=== PATIENT | female | born 1940 | race Caucasian/White ===

== ENCOUNTER 2021-10-31 16:44 | Outpatient (CLI) | payer SELFPAY | END 2021-10-31 16:45 | disposition home or self-care (01) | LOC: AMB 11-21 11:50 | PROVIDERS: Visit Provider Emergency Medicine | DX: S89.91XA Unspecified injury of right lower leg, initial encounter (principal); W18.30XA Fall on same level, unspecified, initial encounter; Y92.009 Unspecified place in unspecified non-institutional (private) residence as the place of occurrence of the external cause | CPT/HCPCS: A0998 ==

== ENCOUNTER 2023-07-10 14:43 | Outpatient (CLI) | payer MEDICARE, BC, SELFPAY ==
--- OUTSIDE RECORDS SUMMARY | 2023-07-17 12:21 | XMS_ITS | Encounter Summary ---
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 Name Role Phone Alvin Borrego NP Primary Care Provider [phone] Encounter Details Date Type Department Care Team (Late st Contact Info) Description 04/24/2023 1:00 PM [facility] Office Visit [facility] [address] [place], [place] [address] Ruel Sanchez MD [address] [place], [place] [id number] Chronic kidney disease, stage 4 (severe) (CMS-HCC) (Primary Dx); Essential (primary) hypertension; Idiopathic gout, not otherwise specified; Hypercalcemia; History of parathyroidectomy; History of acute renal failure; Albuminuria, not otherwise specified; Vitamin D deficiency, not otherwise specified Social History Tobacco Use Types Packs/Day Years Used Date Smoking Tobacco: Former Cigarettes Q uit: 1982 Smokeless Tobacco: Never Alcohol Use Standard Drinks/Week Comments Not Currently 0 (1 standard drink = 0.6 oz pur e alcohol) Sex and Gender Information Value Date Recorded Sex Assigned at Not on file Gender Identity Not on file Sexual Orientation Not on file documented as of this encounter Progress Notes * Ruel Sanchez MD - 04/24/2023 1:00 PM CST Nephrology Follow-up [facility] Primary physician: Alvin Borrego NP 04/24/23 Visit completed with the use of audio technology Total time including chart preparation, patient interview and documentation in excess of 30 minutes Identification: Follow-up CKD stage 3b/4 Impression: 1. CKD stage Stage IIIb -baseline creatinine 1.5 mg/dl -GFR 40 to 50 ml/min range -12/28/20: 1.66 mg/dl -12/20/21: 1.37 mg/dl -04/29/22: 1.48 mg/dl -probable progressive chronic kidney disease 2. ARF -associated with hypercalcemia 02/2019 -peak creatinine > 3 mg/dl -resolved -multiple previous ARF episodes 3. Hypertension -controlled by review 4. Primary hyperparathyroidism -parathyroidectomy 01/2019 -multiple hospitalizations regarding Ca fluctuations -follows with Dr. Bee Endocrinology -12/28/20: Ca 8.8 mg/dl -08/10/21: Ca 7.3 mg/dl -12/20/21: Ca 8.6 mg/dl -04/23/22: Ca 7.8 mg/dl 5. Chronic lymphedema 6. Diabetes 7. Hyperuricemia with gout 8. Depression 9. Osteopenia -Prolia initiated 01/2022 Seen by primary care dated 12/21/22 By endocrinology dated 01/10/23 Labs performed 04/23/22 reviewed in detail with the patient. Creatinine 1.67 mg/dL Creatinine slightly above baseline, in conjunction with modestly elevated sodium suggest perhaps mild volume depletion Plan: 1. Encouraged to maintain hydration 2. Follow-up labs July 3. Continue current meds Patient to titrate her MiraLAX based on her frequency of bowel movements History of Present Illness: Patient follow-up in the setting of CKD and stage 3b/4. Patient last evaluated here in October. As noted she has been following up with her medical care. Major issue is her bowels by review. Titrating her MiraLAX. Mood stable. Edema persists. Denies headache chest pain or shortness of breath. Review of her blood pressures per outpatient notes demonstrate adequate control. I did review her medications in detail with her. Medical Problem List: Patient Active Problem List Diagnosis Chronic kidney disease, stage 4 (severe) ([facility]) Essential (primary) hypertension Vitamin D deficiency Gout Hypercalcemia History of parathyroidectomy History of acute renal failure Albuminuria Disorder of kidney due to diabetes mellitus ([facility]) Current Medications: Current Outpatient Medications Medication Sig Dispense Refill acetaminophen (TYLENOL 8 HOUR) 650 MG 8 hr tablet Take 650 mg by mouth every 8 (eight) hours if needed 0 aspirin (ST SALTY) 81 MG EC tablet Take 1 tablet by mouth daily atorvastatin (LIPITOR) 80 MG tablet 1 tab daily 0 bumetanide (BUMEX) 1 MG tablet TAKE 1 TABLET BY MOUTH 1 TIME EACH DAY. 90 tablet 3 cholecalciferol (VITAMIN D-3) 25 MCG (1000 UT) tablet Take 2,000 Units by mouth 1 (one) time each day 3 days per week - Saturday, Saturday and Saturday. Continuous Blood Gluc Sensor (Gema TouchStyle Haile 2 Sensor) [facility] [place] APPLY EVERY 14 DAYS. TO BE USED TO READ BLOOD SUGARS PER CLAMMER'S DIRECTIONS. Denosumab 60 MG/ML solution prefilled syringe Inject 60 mg under the skin every 6 (six) months diclofenac (VOLTAREN) 1 % topical gel Apply 1 application topically 2 (two) times a day Ferrous Sulfate (IRON) 325 (65 Fe) MG tablet Take 1 tablet by mouth 2 (two) times a week 0 FLUoxetine (PROzac) 40 MG capsule Take 40 mg by mouth 1 (one) time each day gabapentin (NEURONTIN) 300 MG capsule Take 300 mg by mouth in the morning and 300 mg in the evening. hydrocortisone (ANUSOL-HC) 2.5 % rectal cream Apply rectally as needed 0 insulin aspart (NovoLOG FLEXPEN) 100 UNIT/ML injection 5 units with small meals, 10 units with large meals. Use a 2/50 >150 sliding scale. Up to 40 units daily insulin glargine (Lantus SoloStar) 100 UNIT/ML injection Inject 8 Units under the skin in the morning. levETIRAcetam (KEPPRA XR) 750 mg tablet sustained-release 24 hour 24 Hour tablet Take 750 mg by mouth every night loratadine (CLARITIN) 10 MG tablet Take 0.5 tablets by mouth 1 (one) time each day 0 Multiple Vitamins-Minerals (PRESERVISION AREDS 2) capsule Take 1 tablet by mouth twice a day 0 omega-3 acid ethyl esters (LOVAZA) 1 g capsule Take 1 g by mouth 2 (two) times a day Oyster Shell Calcium 500 MG tablet TAKE 2 TABLETS (1,000 MG) BY MOUTH ONCE DAILY WITH A MEAL. Ozempic, 0.25 or 0.5 MG/DOSE, 2 MG/3ML solution pen-injector INJECT 0.25 MG UNDER THE SKIN ONCE WEEKLY polyethylene glycol (MIRALAX) powder prn 0 senna-docusate sodium (SENOKOT-S) 8.6-50 MG tablet Take 1 tablet by mouth 1 (one) time each day if needed 0 No current facility-administered medications for this visit. Allergies: Allergies Allergen Reactions Amoxicillin Nausea Only nausea Social/Family History: No recent changes per patient She is currently at home. She lives alone but her daughter is visiting at this time. Review of Systems: Review of Systems Constitutional: Positive for fatigue. Negative for activity change, appetite change, fever and unexpected weight change. HENT: Negative. Eyes: Negative. Respiratory: Negative. Cardiovascular: Positive for leg swelling. Gastrointestinal: Positive for diarrhea. Genitourinary: Negative. Neurological: Negative. Psychiatric/Behavioral: Positive for dysphoric mood and sleep disturbance. Examination: Physical Exam Constitutional: Appearance: She is well-developed and well-nourished. Eyes: Extraocular Movements: EOM normal. Cardiovascular: Rate and Rhythm: Normal rate and regular rhythm. Pulmonary: Effort: Pulmonary effort is normal. Musculoskeletal: General: Edema present. Neurological: Mental Status: She is alert and oriented to person, place, and time. Psychiatric: Mood and Affect: Mood and affect normal. Behavior: Behavior normal. Data: Labs dated 04/23/23 reviewed with patient in detail Creatinine 1.67 mg/dl Na 145 mmol/l Ca 7.8 mg/dl No visits with results within 22 Day(s) from this visit. Latest known visit with results is: Orders Only on 10/11/2022 Component Date Value Ref Range Status Glucose, Serum/Plasma 10/11/2022 100 (H) 65 - 99 mg/dL Final Urea nitrogen, Serum/Plasma (BUN) 10/11/2022 30 (H) 7 - 25 mg/dL Final Creatinine, Serum/Plasma 10/11/2022 1.43 (H) 0.60 - 0.95 mg/dL Final Estimated Glomerular Filtration Ra* 10/11/2022 37 (L) > OR = 60 mL/min/1.73m2 Final Urea nitrogen/Creatinine, Serum/Pl* 10/11/2022 21 6 - 22 (calc) Final Sodium, Serum/Plasma 10/11/2022 143 135 - 146 mmol/L Final Potassium, Serum/Plasma 10/11/2022 4.1 3.5 - 5.3 mmol/L Final Chloride, Serum/Plasma 10/11/2022 103 98 - 110 mmol/L Final Carbon dioxide CO2), total, Serum/* 10/11/2022 29 20 - 32 mmol/L Final Calcium, Serum/Plasma 10/11/2022 9.2 8.6 - 10.4 mg/dL Final Phosphate, Serum/Plasma 10/11/2022 3.7 2.1 - 4.3 mg/dL Final Albumin, Serum/Plasma 10/11/2022 4.2 3.6 - 5.1 g/dL Final PTH, Intact, Serum/Plasma 10/11/2022 26 16 - 77 pg/mL Final Calcidiol, Serum/Plasma 10/11/2022 53 30 - 100 ng/mL Final Lab Results Component Value Date CREATININE 1.43 (H) 10/11/2022 CREATININE 1.48 (H) 04/20/2021 CREATININE 1.48 (H) 06/13/2020 CREATININE 2.04 (H) 01/11/2020 CREATININE 1.48 (H) 06/30/2018 CREATININE 1.34 (H) 12/12/2017 CREATININE 1.23 (H) 08/07/2017 CREATININE 1.41 (H) 12/26/2016 CREATININE 1.61 (H) 10/08/2016 CREATININE 1.98 (H) 10/11/2015 CREATININE 2.75 (H) 02/09/2014 Mis Sanchez [facility] [phone] [facility] documented in this encounter Plan of Treatment Not on file documented as of this encounter Visit Diagnoses Diagnosis Chronic kidney disease, stage 4 (severe) ([facility])- Primary Essential (primary) hypertension Idiopathic gout, not otherwise specified Hypercalcemia History of parathyroidectomy History of acute renal failure Albuminuria, not otherwise specified Vitamin D deficiency, not otherwise specified documented in this encounter Care Teams [employer] Operator Relationship Specialty Start Date End Date Alvin Borrego NP [address] [place], [place] [id number] PCP - General 04/15/23 05/09/23 documented as of this encounter
--- OUTSIDE RECORDS SUMMARY | 2023-07-17 12:21 | XMS_ITS | Continuity of Care Document ---
Author Name Unknown Organization [facility] bhavna Address [address] [place] [address] Phone Care Team Providers Care Gear Cutter Name Role Phone Will MD MUSA, Heri Unavailable Unavailabl e Allergies, Adverse Reactions, Alerts Substance Reaction Status Criticality amoxicillin Nausea Active No Information Medications Medication Instructions Dosage Effective Dates (start - stop) Status Comments bumetanide 1 mg tablet take 1 tablet by oral route every day 1 MG - Active allopurinol 100 mg tablet take 1 tablet by oral route every day 100 MG - Active gabapentin 300 mg capsule take 1 capsule by ORAL route 3 times every day 300 MG - Active Lipitor 80 mg tablet take 1 tablet by oral route every day 80 MG - Active Vitamin D3 25 mcg (1,000 unit) tablet - Active diclofenac 1 % topical gel apply 2 gram by topical route 4 times every day to the affected area(s) 2.00 gram - Active docusate sodium 100 mg capsule take 1 capsule by oral route 3 times every day at bedtime as needed 100 MG - Active levetiracetam 500 mg/5 mL intravenous solution infuse (500MG) by intravenous route 2 times every day over 500 MG - Active Lovaza 1 gram capsule take 2 capsule by oral route 2 times every day 2 G - Active gabapentin 300 mg capsule take 1 capsule by ORAL route 3 times every day 300 MG - Active Sloughhouse 5 mg-325 mg tablet take 1 tablet by oral route every 6 hours as needed for pain - Active Procedures Procedure Date OFFICE/OUTPATIENT VISIT, NEW Advance Directives Directive Yes / No Effective Date File Name No Information Encounters Encounter Description Practice Location Reason(s) For Visit Diagnoses Date Provider Providers Copied on Encounter [facility], [address] [place], [id number] , [place] tel:[phone] [facility] Andie No Information 2 Chandrakant Liriano. [address] [place], [id number] , [place]. tel:[phone] OFFICE/OUTPA TIENT VISIT, NEW [facility], [address] [place], [id number] , [place] tel:[phone] [facility] [place] Low back pain (chief complaint) Chronic pain syndromePostlaminec meka syndrome, not elsewhere classifiedEncounter for screening for other disorderLumbago with sciatica, unspecified sideRadiculopathy, lumbosacral region 0 Jolynn Rondon. [address], [place], [id number] , [place]. tel:[phone] Referring Provider: Tino Abdi, [address] [address] [place], [address]. tel:[phone] Family History Family Member Type Diagnosis Age At Onset No Information Payers Payer name Insurance type Covered alliance party ID Authoriza tion(s) Medicare MB [id number] [facility] [id number] Social History Type Description Quantity Date Captured Comments Sex Female Smoking Status No Information Chief Complaint And Reason For Visit No Information Reason For Referral Reason For Referral No Information History Of Present Illness Encounter Date Complaint History Of Prese nt Illness Low back pain Severity level i s 8. Location of pain is lower back, gluteal area, legs and knee.The patient describes the pain as an ache, burning and sharp. Symptoms are aggravated by ascending stairs, descending stairs, lifting, running, standing and walking. Symptoms are relieved by ice and rest. Low back pain (comments) Vianey is a 79 y/o female here for chronic widespread pain most bothersome in her BL buttock, R outer thigh and R knee. She has experienced sciatica pain intermittently over the last three years. Pain started to get more severe in November 2019. She then started experiencing intense burning on the right outer thigh to knee. Pain is especially aggravated while getting out of bed. She has a history of L3-L5 fusion in 2017 and L3 and L4 laminectomies in 2013 which was completed at [place]. She is now established with Dr. Torrez at [facility] for further workup.Vianey has recently trialled physical therapy at [facility] in [place] with no benefit. She also had a sacral and lumbar MRI done at [facility]. She will be having a repeat lumbar MRI next week. She is currently managed on gabapentin 300mg three times and Sloughhouse 5mg-325mg as needed which is prescribed by her PCP, Dr. Fraga.She is interested in any pain management options and adjunctive therapies that will manage daily flares. Functional Status Date Functional Assessmen t No Information Instructions Date Instruction Additional Infor mation No Information Assessments Type Assessment Date No Information Patient Care Teams Name Effective Dates (start - stop) Status Members No Information
--- OUTSIDE RECORDS SUMMARY | 2023-07-17 12:21 | XMS_ITS | Referral Summary ---
Author Name Unknown Organization [facility] Address [address] [place] [id number] Care Team Providers Care Furnace Door Tender Name Role Phone Sukh Borrego MD Primary Care Provider Leanne Shrestha PA-C Unavailable Encounters Date Type Department Care Team Description 07/10/2023 Travel 07/10/2023 3:21 PM CDT - 07/10/2023 6:48 PM CDT Emergency [facility] Emergency Dept [address] [place] [address] Florina Soler MD Abdominal pain, unspecified abdominal location; Constipation, unspecified constipation type; Thrombocytopenia (H24) Discharge Disposition: Home or Self Care 06/18/2023 Travel 06/18/2023 3:50 PM CDT - 06/18/2023 11:59 PM CDT Hospital Encounter [facility] [address] [address] René Doss MD Altered bowel habits Discharge Disposition: Home or Self Care 06/11/2023 Travel from Last 3 Months Allergies Active Allergy Reactions Criticality Noted Date Comments Amoxicillin Nausea 07/02/2002 nausea Medications Medication Sig Dispensed Refills Start Date End Date Status ferrous sulfate (IRON) 325 (65 FE) MG tablet Take 325 mg by mouth twice a week On Mondays and Active insulin aspart (NOVOLOG FLEXPEN) 100 UNIT/ML injection Inject Subcutaneous 3 times daily (with meals) Inject as per sliding scale: <70 call CUSHION MAT MAKER and use hypoglycemic protocol if 200 - 249 = 2 unit 250 - 299 = 4 units 300 - 349 = 6 units 350 - 399 = 8 units 400 - 449 = 10 units 450+ = 12 units call MD Active famotidine (PEPCID) 20 MG tabletIndications:Gastr oesophageal reflux disease without esophagitis Take 1 tablet (20 mg) by mouth daily 30 tablet 1 03/29/20 19 Active gabapentin (NEURONTIN) 300 MG capsule Take 300 mg by mouth 2 times daily Active cholecalciferol 25 MCG (1000 UT) TABS Take 1 tablet by mouth daily Active calcitRIOL (ROCALTROL) 0.25 MCG capsuleIndications:Hype rcalcemia,Hyperparathyr oidism (H24) Take 1 capsule (0.25 mcg) by mouth daily 30 capsule 05/02/19 Active acetaminophen (TYLENOL) 500 MG tablet Take 1,000 mg by mouth every 8 hours as needed for mild pain Active allopurinol (ZYLOPRIM) 100 MG tablet Take 200 mg by mouth daily Active bumetanide (BUMEX) 1 MG tablet Take 1 mg by mouth 2 times daily Active calcium carbonate (OS-JAYDEN) 500 MG tablet Take 1 tablet by mouth 2 times daily Active atorvastatin (LIPITOR) 80 MG tabletIndications:Pure hypercholesterolemia Take 0.5 tablets (40 mg) by mouth At Bedtime 06/21/19 Active insulin glargine (BASAGLAR KWIKPEN) 100 UNIT/ML penIndications:Type 2 diabetes mellitus with diabetic neuropathy, with long-term current use of insulin (H) Inject 10 Units Subcutaneous daily 06/21/19 Active Additional Information Patient taking differently: 8 UnitsSubcutaneous DAILY, Reported on 06/11/2023 insulin aspart (NOVOLOG FLEXPEN) 100 UNIT/ML penIndications:Type 2 diabetes mellitus with diabetic neuropathy, with long-term current use of insulin (H) Inject 1 unit per 20 grams of carbohydrates three times daily with meals. 06/21/19 Active levETIRAcetam (KEPPRA) 750 MG tabletIndications:Statu s epilepticus (H) Take 1 tablet (750 mg) by mouth every 12 hours 06/21/19 Active FLUoxetine (PROZAC) 40 MG capsule Take 40 mg by mouth daily 03/19/20 21 2023 Disconti nued(Pat ient Discharg e) sertraline (ZOLOFT) 100 MG tablet Take 2 tablets by mouth every morning 12/22/19 22 2023 Disconti nued(Pat ient Discharg e) Active Problems Problem Noted Date Diagnosed Date Recurrent major depressive disorder, in tom n (H24) 08/29/2021 Status epilepticus 06/15/2019 CKD (chronic kidney disease) stage 4, GFR 15-29 ml/min 04/16/2019 Hypercalcemia 02/18/2019 Hypocalcemia 01/25/2019 Hyperparathyroidism (H24) 01/16/2019 Cellulitis 01/21/2018 Sepsis 04/30/2017 Gout 10/07/2009 Dyslipidemia 10/05/2009 Diabetes mellitus, type 2 10/12/2002 Overview: Problem list name updated by automated process. Provider to review Pure hypercholesterolemia 10/12/2002 Essential hypertension, benign 10/12/2002 Symptomatic menopausal or female climacteric sta peter 10/12/2002 Osteoarthritis 10/12/2002 Overview: Problem list name updated by automated process. 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 Provider to review Resolved Problems Problem Noted Date Diagnosed Date Resolved Date Thumb pain 08/17/2010 09/12/2010 Generalized osteoarthritis of hand 08/17/2010 09/12/2010 Immunizations Name Administration Dates Next Due DTaP, Unspecified 03/25/2015 Flu 65+ Years 12/29/2018,12/23/2017,12/20/2016 Influenza (H1N1) 04/22/2009 Influenza (High Dose) 3 dansiha nt vaccine 01/06/2016,01/11/2015,01/08/2014 Influenza (IIV3) PF 02/03/2013, 2,02/01/2011,2009,12/29/2008,01/21/2008,01/28/2007,1 04/15/2005,01/23/2005,01/12/2004, 003,02/20/2002 Influenza, seasonal, injectable, PF 02/01/2011 Pneumo Conj 13-V (2010&after) 03/25/2015 Pneumococcal 23 valent 02/21/2011,04/09/1999 Td (Adult), Adsorbed 10/10/2006,10/06/1996 Zoster recombinant adjuvante d (SHINGRIX) 09/11/2018,01/02/2018 Social History Tobacco Use Types Packs/Day Years Used Date Smoking Tobacco: Former Cigarettes Smokeless Tobacco: Never Tobacco Cessation:Counseling Given: Not Answered Alcohol Use Standard Drinks/Week Comments Yes 0 (1 standard drink = 0.6 oz pur e alcohol) Adolescent Education Answer Date Record ed Getting School Help Needed Not on file 01/18 Sex and Gender Information Value Date Recorded Sex Assigned at Not on file Gender Identity Not on file Sexual Orientation Not on file Last Filed Vital Signs Vital Sign Reading Time Taken Comments Blood Pressure 117/53 07/10/2023 6:15 PM CDT Pulse 85 07/10/2023 6:15 PM CDT Temperature 36.6 ??C (97.9 ??F) 07/10/2023 3:33 PM CD T Respiratory Rate 18 07/10/2023 3:33 PM CDT Oxygen Saturation 98% 07/10/2023 6:20 PM CDT Inhaled Oxygen Concentration - - Weight 85.5 kg (188 lb 7.9 oz) 06/18/2019 12:00 AM CDT Height 160 cm (5' 3) 04/29/2019 9:37 PM SENIOR NATIONAL ACCOUNT MANAGER Body Mass Index 33.39 04/29/2019 9:37 PM SENIOR NATIONAL ACCOUNT MANAGER Plan of Treatment Not on file Procedures Procedure Name Priority Date/Time Associated Diagnosis Comments CT ABDOMEN PELVIS W/O CONTRAST STAT 07/10/2023 4:19 PM CDT CBC WITH PLATELETS & DIFFERENTIAL STAT 07/10/2023 3:49 PM CDT EXTRA GREEN TOP (LITHIUM HEPARIN) ON ICE STAT 07/10/2023 3:49 PM CDT CBC WITH PLATELETS AND DIFFERENTIAL STAT 07/10/2023 3:49 PM CDT EXTRA TUBE STAT 07/10/2023 3:49 PM CDT BASIC METABOLIC PANEL STAT 07/10/2023 3:[address] ABDOMEN PELVIS W/O CONTRAST Routine 06/18/2023 4:15 PM CDT Altered bowel habits PHOSPHORUS Routine 06/18/2019 4:05 AM CDT COMPREHENSIVE METABOLIC PANEL Routine 06/16/2019 5:15 AM CDT UA MACROSCOPIC WITH REFLEX TO MICRO AND CULTURE Routine 06/15/2019 10:01 PM CDT LIPID REFLEX TO DIRECT LDL PANEL Routine 06/15/2019 2:27 AM CDT Acute ischemic stroke (H) PARATHYROID HORMONE INTACT Routine 05/01/2019 6:40 AM SENIOR NATIONAL ACCOUNT MANAGER KAYLA (acute kidney injury) (H) HEMOGLOBIN A1C Routine 04/30/2019 7:17 AM SENIOR NATIONAL ACCOUNT MANAGER KAYLA (acute kidney injury) (H) ALBUMIN RANDOM URINE QUANTITATIVE Routine 07/23/2013 2:56 PM CDT Edema Chronic kidney disease, stage IV (severe) (H) from Last 3 Months or Most Recently Relevant to Health Maintenance Results * Abd/pelvis CT no contrast - Stone Protocol (07/10/2023 4:19 PM CDT) Only the most recent of2 resultswithin the time period is included. Anatomical Region Laterality Modality Abdomen/Pelvis, SUBRAD CT JETT DY, UMP CT ABDOMEN PELVIS, RAD CT Computed Tomography Impressions 07/10/2023 4:30 PM CDT IMPRESSION: 1. ??Findings compatible with constipation without evidence of mechanical bowel obstruction. 2. ??Stable size of indeterminate bilateral renal lesions, consider renal protocol CT or MRI for definitive characterization on a nonemergent basis. FLORINA CARRENO MD SYSTEM ID: ??[id number] Narrative 07/10/2023 4:[address] ABDOMEN PELVIS W/O CONTRAST 07/10/2023 4:19 PM CLINICAL HISTORY: abd pain, constipation, ?obstruction TECHNIQUE: CT scan of the abdomen and pelvis was performed without IV contrast. Multiplanar reformats were obtained. Dose reduction techniques were used. CONTRAST: None. COMPARISON: CT 06/18/2023 FINDINGS: LOWER CHEST: Unremarkable. HEPATOBILIARY: Cholelithiasis without evidence of acute cholecystitis or biliary obstruction. PANCREAS: No ductal dilation or surrounding fat stranding. SPLEEN: Normal. ADRENAL GLANDS: Normal. KIDNEYS/BLADDER: No nephroureterolithiasis or hydronephrosis. Indeterminate bilateral renal lesions, stable in size since immediate prior CT. Urinary bladder is unremarkable. BOWEL: No nikolas mechanical obstruction. Large volume of formed stool throughout the colon, particularly in the rectum. No wall thickening or surrounding inflammation. LYMPH NODES: No suspicious lymphadenopathy. VASCULATURE: Moderate calcified atherosclerosis. PELVIC ORGANS: Hysterectomy. OTHER: No lymphadenopathy or ascites. MUSCULOSKELETAL: No acute bony abnormality. Posterior spinal fusion hardware. Procedure Note Florina Carreno MD - 07/10/2023 CT ABDOMEN PELVIS W/O CONTRAST 07/10/2023 4:19 PM CLINICAL HISTORY: abd pain, constipation, ?obstruction TECHNIQUE: CT scan of the abdomen and pelvis was performed without IV contrast. Multiplanar reformats were obtained. Dose reduction techniques were used. CONTRAST: None. COMPARISON: CT 06/18/2023 FINDINGS: LOWER CHEST: Unremarkable. HEPATOBILIARY: Cholelithiasis without evidence of acute cholecystitis or biliary obstruction. PANCREAS: No ductal dilation or surrounding fat stranding. SPLEEN: Normal. ADRENAL GLANDS: Normal. KIDNEYS/BLADDER: No nephroureterolithiasis or hydronephrosis. Indeterminate bilateral renal lesions, stable in size since immediate prior CT. Urinary bladder is unremarkable. BOWEL: No nikolas mechanical obstruction. Large volume of formed stool throughout the colon, particularly in the rectum. No wall thickening or surrounding inflammation. LYMPH NODES: No suspicious lymphadenopathy. VASCULATURE: Moderate calcified atherosclerosis. PELVIC ORGANS: Hysterectomy. OTHER: No lymphadenopathy or ascites. MUSCULOSKELETAL: No acute bony abnormality. Posterior spinal fusion hardware. IMPRESSION: 1. Findings compatible with constipation without evidence of mechanical bowel obstruction. 2. Stable size of indeterminate bilateral renal lesions, consider renal protocol CT or MRI for definitive characterization on a nonemergent basis. FLORINA CARRENO MD SYSTEM ID: [id number] Florina Soler MD [facility] CT ORDERABLES * Extra Green Top ([place] Heparin) ON ICE (07/10/2023 3:49 PM CDT) Hold Specimen JIC 07/10/2023 5:02 PM CDT [facility] Blood VENOUS LINE / Unknown Venipuncture / Unknown 07/10/2023 3:49 PM CDT 07/10/2023 3:53 PM CDT Florina Soler MD LAB - BLOOD ORDERA BLES [facility] [address] [facility] Lab (1st floor, no room number) [place] [address] * (ABNORMAL) CBC with platelets and differential (07/10/2023 3:49 PM CDT) WBC Count 10.0 4.0 - 11.0 10e3/uL 07/10/2023 4:09 PM CDT [facility] RBC Count 4.37 3.80 - 5.20 10e6/uL 07/10/2023 4:09 PM CDT [facility] Hemoglobin 12.7 11.7 - 15.7 g/dL 07/10/2023 4:09 PM CDT [facility] Hematocrit 37.6 35.0 - 47.0 % 07/10/2023 4:09 PM CDT [facility] MCV 86 78 - 100 fL 07/10/2023 4:09 PM CDT [facility] MCH 29.1 26.5 - 33.0 pg 07/10/2023 4:09 PM CDT [facility] MCHC 33.8 31.5 - 36.5 g/dL 07/10/2023 4:09 PM CDT [facility] RDW 13.1 10.0 - 15.0 % 07/10/2023 4:09 PM CDT [facility] Platelet Count 136(L) 150 - 450 10e3/uL 07/10/2023 4:09 PM CDT [facility] % Neutrophils 85 % 07/10/2023 4:09 PM CDT [facility] % Lymphocytes 8 % 07/10/2023 4:09 PM CDT [facility] % Monocytes 7 % 07/10/2023 4:09 PM CDT [facility] % Eosinophils 0 % 07/10/2023 4:09 PM CDT [facility] % Basophils 0 % 07/10/2023 4:09 PM CDT [facility] % Immature Granulocytes 0 % 07/10/2023 4:09 PM CDT [facility] NRBCs per 100 WBC 0 <1 /100 024 4:09 PM CDT [facility] Absolute Neutrophils 8.4(H) 1.6 - 8.3 10e3/uL 07/10/2023 4:09 PM CDT [facility] Absolute Lymphocytes 0.8 0.8 - 5.3 10e3/uL 07/10/2023 4:09 PM CDT [facility] Absolute Monocytes 0.7 0.0 - 1.3 10e3/uL 07/10/2023 4:09 PM CDT [facility] Absolute Eosinophils 0.0 0.0 - 0.7 10e3/uL 07/10/2023 4:09 PM CDT [facility] Absolute Basophils 0.0 0.0 - 0.2 10e3/uL 07/10/2023 4:09 PM CDT [facility] Absolute Immature Granulocytes 0.0 <=0.4 10e3/uL 07/10/2023 4:09 PM CDT [facility] Absolute NRBCs 0.0 10e3/uL 07/10/2023 4:09 PM CDT [facility] Blood VENOUS LINE / Unknown Venipuncture / Unknown 07/10/2023 3:49 PM CDT 07/10/2023 3:52 PM CDT Florina Soler MD LAB - BLOOD ORDERA BLES [facility] [address] Lab (1st floor, no room number) [place] [address], [facility] * (ABNORMAL) Basic metabolic panel (07/10/2023 3:49 PM CDT) [facility] Sodium 143 135 - 145 mmol/L 07/10/2023 4:24 PM CDT [facility] Comment:Reference intervals for this test were updated on 01/01/2023 to more accurately reflect our healthy population. There may be differences in the flagging of prior results with similar values performed with this method. Interpretation of those prior results can be made in the context of the updated reference intervals. Potassium 3.5 3.4 - 5.3 mmol/L 07/10/2023 4:24 PM CDT LABORATORY Chloride 103 98 - 107 mmol/L 07/10/2023 4:24 PM CDT [facility] Carbon Dioxide (CO2) 23 22 - 29 mmol/L 07/10/2023 4:24 PM CDT [facility] Anion Gap 17(H) 7 - 15 mmol/L 07/10/2023 4:24 PM CDT [facility] Urea Nitrogen 35.2(H) 8.0 - 23.0 mg/dL 07/10/2023 4:24 PM CDT [facility] Creatinine 1.49(H) 0.51 - 0.95 mg/dL 07/10/2023 4:24 PM CDT [facility] GFR Estimate 35(L) >60 mL/min/1. 73m2 07/10/2023 4:24 PM CDT LABORATORY Calcium 9.8 8.8 - 10.2 mg/dL 07/10/2023 4:24 PM CDT [facility] Glucose 176(H) 70 - 99 mg/dL 07/10/2023 4:24 PM CDT LABORATORY Blood VENOUS LINE / Unknown Venipuncture / Unknown 07/10/2023 3:49 PM CDT 07/10/2023 3:53 PM CDT Florina Soler MD LAB - BLOOD ORDERA BLES LAB[facility]AT[facility] [address] [facility] Lab (1st floor, no room number) [place] [address], [facility] * Phosphorus (06/18/2019 4:05 AM CDT) [facility] Phosphorus 4.4 2.5 - 4.5 mg/dL 06/18/2019 4:38 AM CDT [facility] Blood specimen (specimen) 06/18/2019 4:05 AM CDT 06/18/2019 4:16 AM CDT Philip Lees MD LAB - BLOOD ORDERABL ES [facility] [address] [place] [address], [place] [phone] * (ABNORMAL) Comprehensive metabolic panel (06/16/2019 5:15 AM CDT) Sodium 145(H) 133 - 144 mmol/L 06/16/2019 5:38 AM CDT [facility] Potassium 4.0 3.4 - 5.3 mmol/L 06/16/2019 5:38 AM CDT [facility] Chloride 114(H) 94 - 109 mmol/L 06/16/2019 5:38 AM T [facility] Carbon Dioxide 25 20 - 32 mmol/L 06/16/2019 5:45 AM [facility] Anion Gap 6 3 - 14 mmol/L 06/16/2019 5:45 AM [facility] Glucose 253(H) 70 - 99 mg/dL 06/16/2019 5:45 AM [facility] Urea Nitrogen 28 7 - 30 mg/dL 06/16/2019 5:45 AM [facility] Creatinine 1.23(H) 0.52 - 1.04 mg/dL 06/16/2019 5:45 AM [facility] GFR Estimate 42(L) >60 mL/min/{1 .73_m2} 06/16/2019 5:45 AM [facility] Comment: Non GFR Calc Starting 03/25/2018, serum creatinine based estimated GFR (eGFR) will be calculated using the Chronic Kidney Disease Epidemiology Collaboration (CKD-EPI) equation. GFR Estimate If Black 49(L) >60 mL/min/{1 .73_m2} 06/16/2019 5:45 AM [facility] Comment: GFR Calc Starting 03/25/2018, serum creatinine based estimated GFR (eGFR) will be calculated using the Chronic Kidney Disease Epidemiology Collaboration (CKD-EPI) equation. Calcium 8.1(L) 8.5 - 10.1 mg/dL 06/16/2019 5:45 AM [facility] Bilirubin Total 0.6 0.2 - 1.3 mg/dL 06/16/2019 5:47 AM CDT [facility] Albumin 2.7(L) 3.4 - 5.0 g/dL 06/16/2019 5:47 AM T [facility] Protein Total 5.6(L) 6.8 - 8.8 g/dL 06/16/2019 5:47 AM T [facility] Alkaline Phosphatase 67 40 - 150 U/L 06/16/2019 5:47 AM T [facility] ALT 17 0 - 50 U/L 06/16/2019 5:47 AM T [facility] AST 13 0 - 45 U/L 06/16/2019 5:47 AM [facility] Blood specimen (specimen) 06/16/2019 5:15 AM CDT 06/16/2019 5:26 AM CDT Nick Coronel MD LAB - BLO OD ORDERABLES [facility] [address] [place] [address], [place] [phone] * (ABNORMAL) UA reflex to Microscopic and Culture (06/15/2019 10:01 PM CDT) Color Urine Light Yellow 06/15/2019 10:19 PM [facility] Appearance Urine Clear 06/15/19 10:19 PM [facility] Glucose Urine 150(A) NEG^Nega tive mg/dL 06/15/2019 10:19 PM [facility] Bilirubin Urine Negative NEG^Nega tive 06/15/2019 10:19 PM [facility] Ketones Urine Negative NEG^Nega tive mg/dL 06/15/2019 10:19 PM [facility] Specific [place] Urine 1.019 1.003 - 1.035 06/15/2019 10:19 PM [facility] Blood Urine Negative NEG^Nega tive 06/15/2019 10:19 PM [facility] pH Urine 7.5(H) 5.0 - 7.0 pH 06/15/2019 10:19 PM CDT [facility] Protein Albumin Urine 30(A) NEG^Nega tive mg/dL 06/15/2019 10:19 PM CDT [facility] Urobilinogen mg/dL Normal 0.0 - 2.0 mg/dL 06/15/2019 10:19 PM CDT [facility] Nitrite Urine Negative NEG^Nega tive 06/15/2019 10:19 PM CDT [facility] Leukocyte Esterase Urine Negative NEG^Nega tive 06/15/2019 10:19 PM CDT [facility] Source Catheterized Urine 06/15/2019 10:09 PM CDT [facility] RBC Urine <1 0 - 2 /HPF 06/15/2019 10:19 PM CDT [facility] WBC Urine 2 0 - 5 /HPF 06/15/2019 10:19 PM CDT [facility] Squamous Epithelial /HPF Urine 2(H) 0 - 1 /HPF 06/15/2019 10:19 PM T [facility] Mucous Urine Present(A) NEG^Nega tive /LPF 06/15/2019 10:19 PM [facility] Urine specimen collection, catheterized (procedure) URINE SPECIMEN COLLECTION, CATHETERIZED / Unknown 06/15/2019 10:01 PM CDT 06/15/2019 10:09 PM CDT Nick Coronel MD LAB - URI NE ORDERABLES [facility] [address] [place] [address], [place] [phone] * (ABNORMAL) Lipid panel reflex to direct LDL (06/15/2019 2:27 AM CDT) Cholesterol 122 <200 mg/dL 06/15/2019 3:04 AM CDT [facility] Triglycerides 329(H) <150 mg/dL 06/15/2019 3:04 AM CDT [facility] Comment: Borderline high: ??150-199 mg/dl High: ? 200-499 mg/dl Very high: ? >499 mg/dl HDL Cholesterol 25(L) >49 mg/dL 0 3:04 AM CDT [facility] LDL Cholesterol Calculated 31 <100 mg/dL 06/15/2019 3:04 AM CDT [facility] Comment:Desirable: <100 mg/d l Non HDL Cholesterol 97 <130 mg/dL 06/15/2019 3:04 AM CDT [facility] Blood specimen (specimen) 06/15/2019 2:27 AM CDT 06/15/2019 2:28 AM CDT Brown Crawford MD LAB - BLOOD ORDERABL ES Performing Organization Address City/[facility]/ZIP Co de Phone Number [facility] [address] [phone] * (ABNORMAL) Parathyroid Hormone Intact (05/01/2019 6:40 AM SENIOR NATIONAL ACCOUNT MANAGER) Parathyroid Hormone Intact <7(L) 18 - 80 pg/mL 05/01/2019 2:23 PM SENIOR NATIONAL ACCOUNT MANAGER [facility] Blood specimen (specimen) 05/01/2019 6:40 AM SENIOR NATIONAL ACCOUNT MANAGER 05/01/2019 6:41 AM SENIOR NATIONAL ACCOUNT MANAGER Dunia Wilkins MD LAB - BLOOD ORDERABL ES [facility] [address] [place] [address] * (ABNORMAL) Hemoglobin A1c (04/30/2019 7:17 AM SENIOR NATIONAL ACCOUNT MANAGER) Hemoglobin A1C 7.8(H) 0 - 5.6 % 04/30/2019 7:49 AM SENIOR NATIONAL ACCOUNT MANAGER [facility] Comment: Normal <5.7% Prediabetes 5.7-6.4% ??Diabetes 6.5% or higher - adopted from ADA consensus guidelines. Blood specimen (specimen) 04/30/2019 7:17 AM SENIOR NATIONAL ACCOUNT MANAGER 04/30/2019 7:18 AM SENIOR NATIONAL ACCOUNT MANAGER Becki Perez MD LAB - BLOOD ORDERABL ES [facility] Krist[place] [address], [facility] [phone] * Microalbumin quantitative random urine (07/23/2013 2:56 PM CDT) Creatinine Urine 38 mg/dL [facility] Albumin Urine mg/L <5 Urine Microalbumin lowest reportable value has been changed from 2 mg/L to 5 mg/L due to a methodology change on July. mg/L [facility] Albumin Urine mg/g Cr Unable to calculate 0 - 25 mg/g Cr [facility] Urine specimen (specimen) 07/23/2013 2:56 PM CDT 07/23/2013 3:01 PM CDT Jose Sanchez MD LAB - URINE ORDERABL ES [facility] from Last 3 Months or Most Recently Relevant to Health Maintenance Advance Directives For more information, please contact: [phone] * Full Code (Latest Code Status on File) Date Activated Date Inactivated Comments 06/21/2019 10:41 AM 07/10/2023 3:21 PM Per previous documentation. Question Answer Comments Code status determined by: Other (please documen t) * Full Code Date Activated Date Inactivated Comments 06/15/2019 8:57 PM 06/21/2019 10:41 AM Question Answer Comments Code status determined by: Unable to det ermine; FULL CODE until documents or legal decision maker available * Full Code Date Activated Date Inactivated Comments 06/15/2019 4:32 PM 06/15/2019 8:02 PM Question Answer Comments Code status determined by: Discussion with patie nt/legal decision maker * Full Code Date Activated Date Inactivated Comments 06/15/2019 2:18 AM 06/15/2019 4:32 PM Question Answer Comments Code status determined by: Discussion with patie nt/legal decision maker * Full Code Date Activated Date Inactivated Comments 05/02/2019 10:50 AM 06/14/2019 11:02 PM Question Answer Comments Code status determined by: Discussion with patie nt/legal decision maker Care Teams Furnace Door Tender Relationship Specialty [place] [address] [place] [address] PCP - General 04/30/17 Leanne Shrestha PA-C [address] [address] Physician Newspaper Columnist Urology 07/27/21
--- OUTSIDE RECORDS SUMMARY | 2023-07-17 12:21 | XMS_ITS | Continuity of Care Document ---
Author Name Unknown Organization [facility] Address [address] [address] [place] [address] Phone Care Team Providers Care Sales Incentive Analyst Name Role Phone Selam MEJIA, René Unavailable Unavailable Allergies, Adverse Reactions, Alerts Substance Reaction Status Criticality No Known Allergies Active No Inform ation Medications Medication Instructions Dosage Effective Dates (start - stop) Status Comments Miralax 17 gram/dose oral powder Take by oral route as directed per colonoscopy prep instructions received from [facility] - Active Procedure date: 06/17/23, please dispense 1-8.3ml bottle. Please dispense Golytely. Golytely 236 gram-22.74 gram-6.74 gram-5.86 gram oral solution Take by oral route as directed in colon prep instructions received from [facility] - Active Please keep on file for upcoming procedure 06/17/23. Okay to dispense generic alternative such as Trilyte, Gavilyte, Peg 3350 or Colyte/ GABAPENTIN (unknown strength) take 1 capsule by oral route 3 times every day Not Available - Active Polyox WSR-301 100 % powder - Active atorvastatin 40 mg tablet take 1 tablet by oral route every day 40 MG - Active Procedures Procedure Date Offic/outpt E&m Estab Mod-hi 2 Routine Serum Collection Offic/outpt E&m New Mod Sever Advance Directives Directive Yes / No Effective Date File Name No Information Encounters Encounter Description Practice Location Reason(s) For Visit Diagnoses Date Provider Providers Copied on Encounter [facility], [address] [address], [place], [id number], [place] tel:[phone] [facility] No Information 4 Selam MEJIA René. [address] [facility] [address], [address], [place], [id number] , [place]. tel: [phone] [facility], [address] [address], [place], [id number], [place] tel:[phone] [facility] No Information 4 Selam MEJIA René. [address] [facility], [address], [place], [id number] , [place]. tel: [phone] Offic/outpt E&m Estab Mod-hi 2 [facility], [address] [address], [place], [id number], [place] tel:[phone] [facility] GI Symptoms or Concerns (chief complaint) Altered bowel habitsIncontinence of feces with fecal urgencyUnintentiona l weight lossH/O parathyroidectomyAc quired absence of other organsUrine frequencyDietary counseling and surveillance 4 Selam MEJIA René. [address] [facility], [address], [place], [id number] , [place]. tel: [phone] Referring Provider: Referral Self, USE FOR SELF REFERRALS. [facility], [address] [address], [place], [id number], [place] tel:[phone] [facility] No Information 4 Sang Rondon. [address] [facility], [address], [place], [id number] , [place]. tel: [phone] Offic/outpt E&m New Mod Sever [facility], [address] [address], [place], [id number], [place] tel:[phone] [facility] GI Symptoms or Concerns (chief complaint) Chronic constipationInconti nence of feces with fecal urgency 3 Maryanne Bragg. [address] [facility], [address], [place], [place], [address] , [place]. tel:[phone] Referring Provider: [place], [address] [place], [address]. tel:[phone] [facility], [address] [address], [place], [id number], [place] tel:[phone] [facility] No Information 3 Sang Rondon. [address] [facility], [address], [place], [place], [address] , [place]. tel:[phone] Family History Family Member Type Diagnosis Age At Onset No Information Immunizations Vaccine Date Status Comments SARS-COV-2 (COVID-19) vaccin e, mRNA, spike protein, LNP, preservative free, michael-sucrose, 30 mcg/0.3 mL dose administered Note: [facility] bi-direct ional interface ; Source: Other Registry Respiratory syncytial virus (RSV), vaccine, recombinant, protein subunit RSV prefusion F, adjuvant reconstituted, 0.5 mL, preservative free administered Note: [facility] bi-direct ional interface ; Source: Other Registry influenza, seasonal vaccine, quadrivalent, adjuvanted, 0.5mL dose, preservative free administered Note: [facility] bi-di rectional interface ; Source: Other Registry influenza, seasonal vaccine, quadrivalent, adjuvanted, 0.5mL dose, preservative free administered Note: [facility] bi-di rectional interface ; Source: Other Registry SARS-COV-2 (COVID-19) vaccin e, mRNA, spike protein, LNP, bivalent, preservative free, 50 mcg/0.5 mL or 25 mcg/0.25 mL dose administered Note: [facility] bi-direct ional interface ; Source: Other Registry SARS-COV-2 (COVID-19) vaccin e, mRNA, spike protein, LNP, preservative free, 30 mcg/0.3mL dose, michael-sucrose formulation administered Note: [facility] C bi- directional interface ; Source: Other Registry SARS-COV-2 (COVID-19) vaccin e, mRNA, spike protein, LNP, preservative free, 30 mcg/0.3mL dose administered Note: [facility] bi-direct ional interface ; Source: Other Registry influenza, high-dose seasona l, quadrivalent, 0.7mL dose, preservative free administered Note: [facility] bi-direct ional interface ; Source: Other Registry SARS-COV-2 (COVID-19) vaccin e, mRNA, spike protein, LNP, preservative free, 30 mcg/0.3mL dose administered Note: [facility] bi-direct ional interface ; Source: Other Registry SARS-COV-2 (COVID-19) vaccin e, mRNA, spike protein, LNP, preservative free, 30 mcg/0.3mL dose administered Note: [facility] bi-direct ional interface ; Source: Other Registry influenza, seasonal vaccine, quadrivalent, adjuvanted, 0.5mL dose, preservative free administered Note: [facility] bi-di rectional interface ; Source: Other Registry Seasonal trivalent influenza vaccine, adjuvanted, preservative free administered Note: [facility] bi-direct ional interface ; Source: Other Registry zoster vaccine recombinant administered N ote: [facility] bi-directional interface ; Source: Other Registry zoster vaccine recombinant administered N ote: [facility] bi-directional interface ; Source: Other Registry Seasonal trivalent influenza vaccine, adjuvanted, preservative free administered Note: [facility] bi-direct ional interface ; Source: Other Registry Seasonal trivalent influenza vaccine, adjuvanted, preservative free administered Note: [facility] bi-direct ional interface ; Source: Other Registry influenza, high dose seasona l, preservative-free administered Note: [facility] bi-direct ional interface ; Source: Other Registry influenza, high dose seasona l, preservative-free administered Note: [facility] bi-direct ional interface ; Source: Other Registry influenza, high dose seasona l, preservative-free administered Note: [facility] bi-direct ional interface ; Source: Other Registry Pneumovax 23 administered Note: [facility] bi-d irectional interface ; Source: Other Registry Influenza, seasonal, injecta ble, preservative free administered Note: [facility] bi-direct ional interface ; Source: Other Registry Novel [id number], all formulations administered Note: [facility] bi-direct ional interface ; Source: Other Registry Influenza, seasonal, injectable administe red Note: [facility] bi- directional interface ; Source: Other Registry Influenza, seasonal, injectable administe red Note: [facility] bi- directional interface ; Source: Other Registry Influenza, seasonal, injectable administe red Note: [facility] bi- directional interface ; Source: Other Registry Influenza, seasonal, injectable administe red Note: [facility] bi- directional interface ; Source: Other Registry Influenza, seasonal, injectable administe red Note: [facility] bi- directional interface ; Source: Other Registry Influenza, seasonal, injectable administe red Note: [facility] bi- directional interface ; Source: Other Registry Influenza, seasonal, injectable administe red Note: [facility] bi- directional interface ; Source: Other Registry Influenza, seasonal, injectable administe red Note: [facility] bi- directional interface ; Source: Other Registry Pneumovax 23 administered Note: [facility] bi-d irectional interface ; Source: Other Registry Payers Payer name Insurance type Covered republican ID Authoriza tion(s) No Information Social History Type Description Quantity Date Captured Comments Alcohol Use Details Unknown Caffeine Use Details Unknown Tobacco Use Status No Information Smoking Status No Information Sex Female Chief Complaint And Reason For Visit No Information Reason For Referral Reason For Referral No Information Plan Of Treatment Date Type Action Status Goal Lifestyle education regardin g diet completed Referral Ordered: Colonoscopy Appointment date/timeframe: 06/17/2023 ordered Referral Ordered: CT Abdomen And Pelvis WITHOUT Contrast Appointment date/timeframe: 06/18/2023 ordered Appointment Vianey Flores BOOKED History Of Present Illness Encounter Date Complaint History Of Prese nt Illness GI Symptoms or Concerns An 82-ye ar-old female patient who presents for a followup with her friend for altered bowel habits.She has a medical history significant for:1. Parathyroidectomy.2. Diabetes mellitus, on insulin and Ozempic.3. Depression, on 200 mg of sertraline daily.4. Reported history of C. diff infection.5. Chronic lifelong history of constipation.6. Last colonoscopy more than 20 years ago.The patient reports that she started having altered bowel habits about 2 years ago, with her underlying constipation she started MiraLax use and the 1st year her bowel movements were better controlled, however, she has been using minimal dose of MiraLax daily recently along with a fiber supplement, pill form Metamucil, and has been having mostly severe diarrhea, 6-7 bowel movements a day, with fecal incontinence, small amounts of stool. Intermittently, she has hard stools, not being able to go to the bathroom for 2 or 3 days, excessive straining, and she does pass hard st GI Symptoms or Concerns Vianey is a pleasant 82-year-old female who presents for the evaluation of chronic constipation and fecal incontinence. There were no records to review for this visit.Patient reports a longstanding history of constipation throughout her whole life. She states her typical pattern would be to have a bowel movement once a week. She started taking 1 capful of MiraLax but did not notice improvement in stool consistency. She has tried powder Metamucil but found it caused gas and bloating. She is currently taking one capsule of Metamucil (2g of fiber). She was recently seen by a provider who recommended she add Senna to her regimen. Since adding Senna, she has noticed increased diarrhea and instances of fecal incontinence.She endorses decreased sensation and inability to effectively evacuate stool. Feels like she can't push the stool out. Endorses instances of fecal incontinence where she has not felt the sensation stool and is surprised when she goes to the bathroom and sees she's had an accident. Patient also has been experiencing newer onset bladder incontinence and is following with an industrial energy engineer for this. Patient denies fever, unintentional weight loss, hematochezia, vomiting, or abdominal pain.Patient reports her last colonoscopy was about 20 years ago and revealed no polyps. We do not have those records to review.Past medical history significant for epilepsy. Patient has had a hysterectomy and a parathyroid surgery.Patient reports no family history of colon cancer IBD celiac disease. Functional Status Date Functional Assessmen t No Information Instructions Date Instruction Additional Infor martha 1. We will do testin g for TSH, electrolytes to ensure her calcium is normal.2. Check stool testing for infection and stool calprotectin.3. CT scan of the abdomen and pelvis without contrast given her CKD.4. We might give her a bowel cleansing regimen based on CT findings.5. Colonoscopy at the earliest available in the hospital setting to rule out obstructive etiology, microscopic colitis and to evaluate her TI.6. Check urinalysis given her urine frequency as well.7. Counseled about use of MiraLax every other day rather than daily, and to switch Metamucil to powder form 1 tablespoon with a large glass of water every day. Related to Altered bowel habits Lifestyle education regarding di et Related to Dietary counseling and surveillance Fecal Incontinence Related to In continence of feces with fecal urgency High Fiber Diet Related to Incon tinence of feces with fecal urgency Assessments Type Assessment Date No Information Patient Care Teams Name Effective Dates (start - stop) Status Members No Information
--- OUTSIDE RECORDS SUMMARY | 2023-07-17 12:21 | XMS_ITS | Continuity of Care Document ---
Author Name Unknown Organization [facility] Address [address] [place] [address] Phone Care Team Providers Care Medical Billing Service Name Role Phone Panvica PAC, Man Unavailable Unavailable Allergies, Adverse Reactions, Alerts Substance Reaction Status Criticality POTASSIUM CLAVULANATE Active No Inf ormation AMOXICILLIN TRIHYDRATE Active No In formation Medications Medication Instructions Dosage Effective Dates (start - stop) Status Comments ACETAMINOPHEN (unknown strength) Not Available - Active OXYCODONE HCL (unknown strength) Not Available - Active TIZANIDINE HCL (unknown strength) Not Available - Active LIPITOR (unknown strength) Not Available - Active FUROSEMIDE (unknown strength) Not Available - Active GABAPENTIN (unknown strength) Not Available - Active CLARITIN (unknown strength) Not Available - Active COLACE (unknown strength) Not Available - Active ECOTRIN (unknown strength) Not Available - Active VITAMIN E (unknown strength) Not Available - Active NOVOLOG (unknown strength) Not Available - Active LOVAZA (unknown strength) Not Available - Active ALLOPURINOL (unknown strength) Not Available - Active Procedures Procedure Date Office/Outpatient Visit,Est, Mod 2017 Office/Outpatient Visit,Est, Mod 2017 Postop Followup Visit Postop Followup Visit X-Ray Exam Lower Spine 2-3 Views 2017 Pa Assist Lumbar Spine Fusion, Posterola teral Pa Assist Spine Fusion, Each Add'Lverteb ra Remove Lumbar Spine Lamina, 1 Seg Pa Assist Remove Added Spine Lamina, 1 S eg Pa Assist Insert Spine Seg Fix, Post, 3- 6 Seg Lumbar Spine Fusion, Posterolateral Spine Fusion, Each Add'Lvertebra 2016 Remove Lumbar Spine Lamina, 1 Seg Remove Added Spine Lamina, 1 Seg 2016 Insert Spine Seg Fix, Post, 3-6 Seg Aspiration, Bone Marrow Office/Outpatient Visit,Est, Mod 2016 X-Ray Exam Of Lower Spine, Bending Office/Outpatient Visit,New, Mod 2016 Office/Outpatient Visit,New, Mod 2012 Advance Directives Directive Yes / No Effective Date File Name No Information Encounters Encounter Description Practice Location Reason(s) For Visit Diagnoses Date Provider Providers Copied on Encounter [facility], [address], [place], [place], [id number], [place] tel:[phone] No Information 8 Panvica Man. [facility], [address] [place] [address], [place] [address], [place], [place], [id number] , [place]. tel:[phone] Office/Outpat ient Visit,Est, Mod [facility], [address], [place], [place], [id number], [place] tel:[phone] [facility] Encounter for other specified surgical aftercare 8 Panvica Man. [facility], [address] [place] [address], [address], [place], [place], [id number] , [place]. tel:[phone] Referring Provider: Lexus Rhodes, [facility] [address], [address]. tel:[phone] Office/Outpat ient Visit,Est, Mod [facility], [address], [place], [place], [id number], [place] tel:[phone] [facility] Encounter for other specified surgical aftercare 8 Panvica Man. [facility], [address] [place] [address], [address], [place], [place], [id number] , [place]. tel:[phone] Referring Provider: Lexus Rhodes [address], [place], [address]. tel:[phone] [facility], [address], [place], [place], [id number], [place] tel:[phone] [facility] Arthrodesis statusRadicu lopathy, lumbar region 8 Penaloza Cruz. [facility], [address] [place] [address], [address], [place], [place], [id number] , [place]. tel:[phone] Referring Provider: Lexus Rhodes, [address], [place], [address]. tel:[phone] [facility], [address], [place], [place], [id number], [place] tel:[phone] [facility] [place] Arthrodesis status 8 Penaloza Cruz. [facility], [address] [place] [address], [address], [place], [place], [id number] , [place]. tel:[phone] Referring Provider: Lexus Rhodes [address], [place], [address]. tel:[phone] [facility], [address], [place], [place], [id number], [place] tel:[phone] [facility] No Information 8 Panvica Man. [facility], [address] [place] [address], [address], [place], [place], [id number] , [place]. tel:[phone] Referring Provider: Lexus Rhodes [address], [place], [address]. tel:[phone] [facility], [address], [place], [place], [id number], [place] tel:[phone] [facility] No Information 7 Penaloza Cruz. [facility], [address] [place] [address], [address], [place], [place], [id number] , [place]. tel:[phone] Referring Provider: Lexus Rhodes [address], [place], [address]. tel:[phone] Office/Outpat ient Visit,Est, Mod [facility], [address], [place], [place], [id number], [place] tel:[phone] [facility] - [facility] Spinal stenosis, lumbar region NOSSpondylol isthesis, lumbar region 7 Penaloza Cruz. [facility], [address] [place] [address], [address], [place], [place], [address] , [place]. [phone] Referring Provider: Lexus Rhodes, [address], [place], [address]. tel:[phone] Office/Outpat ient Visit,New, Mod [facility], [address], [place], [place], [id number], [place] tel:[phone] [facility] Spondylolist hesis, lumbar regionLow back painOther spondylosis, lumbar region 7 Panvica Man. [facility], [address] [place] [address], [address], [place], [place], [id number] , [place]. [phone] Referring Provider: Lexus Rhodes [address], [place], [address]. tel:[phone] Office/Outpat ient Visit,New, Mod Z [facility], [address], [place], [address], [place] tel:[phone] [facility] Diabetes Mellitus Type 2, Uncomplicate dHypercholes terolemiaHyp ertension, Unspecified 3 Penaloza Cruz. [facility], [address] [place] [address], [address], [place], [place], [id number] , [place]. [phone] Referring Provider: Babar Roland, [facility] [address], [place], [address]. tel:[phone] Family History Family Member Type Diagnosis Age At Onset Problem (finding) Problem (finding) Problem (finding) Problem (finding) Problem (finding) Problem (finding) Payers Payer name Insurance type Covered republican ID Authoriza tion(s) Medicare MB [id number] [facility] [id number] Social History Type Description Quantity Date Captured Comments Sex Female Smoking Status No Information Chief Complaint And Reason For Visit No Information Reason For Referral Reason For Referral No Information Plan Of Treatment Date Type Action Status Future Order: Radiology Order Se lective Nerve Root Block Lumbar-Ther&Diag-Nonparticulate Steroid (SELECTIVENERVEBLKLUM), Sent on: Sent Future Order: Radiology Order CT Lumbar (CTLUMB), Sent on: Sent Future Order: Radiology Order AP Lateral Lumbar (APLatLumb), Ordered on: Ordered Future Order: Radiology Order F/ E Lumbar (F/ELumb), Ordered on: Ordered History Of Present Illness Encounter Date Complaint History Of Prese nt Illness No Information Functional Status Date Functional Assessmen t No Information Instructions Date Instruction Additional Infor martha Weight Management Education Rela shreya to Overweight Weight management: I nstructed to return to General Practitioner timeframe: 1 Month. Related to Overweight Weight Management Education Rela shreya to Overweight Weight management: I nstructed to return to General Practitioner timeframe: 1 Month. Related to Overweight Weight Management Education Rela shreya to Overweight Weight management: I nstructed to return to General Practitioner timeframe: 1 Month. Related to Overweight Assessments Type Assessment Date No Information Patient Care Teams Name Effective Dates (start - stop) Status Members No Information
--- OUTSIDE RECORDS SUMMARY | 2023-07-17 12:21 | XMS_ITS | Continuity of Care Document ---
Author Name Unknown Organization [facility] Address [address] [place] [address] Phone Care Team Providers Care Head Of Stock Name Role Phone Mariusz Kimbrough MD Unavailable Unavailable Allergies, Adverse Reactions, Alerts Substance Reaction Status Criticality amoxicillin Nausea Active No Information Medications Medication Instructions Dosage Effective Dates (start - stop) Status Comments Glucosamine-Chondroit in 3X 750 mg-600 mg Tab twice a day - Active multivitamin Cap take 1 capsule by oral route every day - Active Tylenol Extra Strength 500 mg Tab take 2 tablet (1000MG) by oral route every 6 hours as needed 1000 MG - Active aspirin 81 mg Tab, Delayed Release take 1 tablet (81MG) by oral route every day 81 MG - Active ferrous sulfate 325 mg (65 mg iron) Tab, Delayed Release 1-2 tablets daily - Active Lovaza 1 gram Cap take 2 capsule (2G) by oral route 2 times every day 2 G - Active SPIRONOLACTONE (unknown strength) take 1 tablet by oral route every day Not Available - Active Crestor 20 mg Tab take 1 tablet (20MG) by oral route every day 20 MG - Active Januvia 100 mg Tab take 1/2 tablet (50mg) by oral route every day - Active Lantus Solostar 100 unit/mL (3 mL) Sub-Q Insulin Pen inject by subcutaneous route as per insulin protocol 0.00 - Active Novolog Mix 70-30 FlexPen 100 unit/mL (70-30) Sub-Q inject by subcutaneous route as per insulin protocol 0.00 - Active Tricor 145 mg Tab take 1 tablet (145MG) by oral route every day 145 MG - Active furosemide 20 mg Tab take 1 tablet (20MG) by oral route every day 20 MG - Active Procedures Procedure Date Office/Outpatient Visit, Est Advance Directives Directive Yes / No Effective Date File Name No Information Encounters Encounter Description Practice Location Reason(s) For Visit Diagnoses Date Provider Providers Copied on Encounter [facility], [address], [place], [address], [place] tel:[phone] [facility], No Information Jun-0 [phone] Kaylan Vee. [facility] [address], [place], [address], [place]. tel:[phone] Office/Outpa tient Visit, Est [facility], [address], [place], [address], [place] tel:[phone] [facility], Gout (chief complaint) Diabetes Mellitus Type 2, Uncomplicated Hypertension, UnspecifiedRe nal Insufficiency , AcuteGOUTY ARTHROPATHY NOS 3 Adriana Mendoza. [address], [address], [place], [place], [address], . tel:[phone] Referring Provider: Reji Dietz, [address], [place], [address] . tel:[phone] Family History Family Member Type Diagnosis Age At Onset Brother Problem (finding) gout Payers Payer name Insurance type Covered libertarian ID Authoriza tion(s) Medicare [id number] [facility] Federal Employee Plan [id number] Social History Type Description Quantity Date Captured [...]
--- OUTSIDE RECORDS SUMMARY | 2023-07-17 12:21 | XMS_ITS | Encounter Summary ---
Author Name Unknown Organization [facility] Address [address] [address] Phone Care Team Providers Care Weather Teacher Name Role Phone BorregoAlvin gunn GALINA Primary Care Provider [phone] Reason for Visit * Reason Onset Date Comments Future orders 05/01/2023 Encounter Details Date Type Department Care Team (Late st Contact Info) Description 05/01/2023 Telephone [facility] [address] [facility] [address] [place] [address] Jaimee Jacob RN Future orders Social History Tobacco Use Types Packs/Day Years [...] on file documented as of this encounter Miscellaneous Notes * Telephone Encounter - Jaimee Jacob RN - 05/08/2023 3:47 PM CST Contacted pt and advised [facility]. She will make a lab appt. * Telephone Encounter - Jaimee Jacob RN - 05/01/2023 11:48 AM CST You mentioned in your office note that you wanted repeat labs in July. Just a BMP or something more? documented in this encounter Plan of Treatment Not on file documented as of this encounter Visit Diagnoses Not on filedocumented in this encounter Care Teams Weather Teacher Relationship Specialty Start Date End Date Alvin Borrego NP [address] [place] [address] PCP - General 04/15/23 05/09/23 documented as of this encounter
--- OUTSIDE RECORDS SUMMARY | 2023-07-17 12:21 | XMS_ITS | Clinical Summary ---
Author Name Unknown Organization [facility] Address [address] [place] [address]. [place] [address] Care Team Providers Care Band Sawmill Operator Name Role Phone Sukh Borrego MD Primary Care Provider [phone] Leanne Shrestha PA-C Unavailable Allergies Active Allergy Reactions Criticality Noted Date Comments Amoxicillin Nausea 07/02/2002 nausea Medications Medication Sig Dispensed Refills Start Date End Date Status ferrous sulfate (IRON) 325 (65 FE) MG tablet Take 325 mg by mouth twice a week On Mondays and Active insulin aspart (NOVOLOG FLEXPEN) 100 UNIT/ML injection Inject Subcutaneous 3 times daily (with meals) Inject as per sliding scale: <70 call FIRE EATER and use hypoglycemic protocol if 200 - [...] mcg) by mouth daily 30 capsule 05/02/19 20 Active acetaminophen (TYLENOL) 500 MG tablet Take 1,000 mg by mouth every 8 hours as needed for mild pain Active allopurinol (ZYLOPRIM) 100 MG tablet Take 200 mg by mouth daily Active bumetanide (BUMEX) 1 MG tablet Take 1 mg by mouth 2 times daily Active calcium carbonate (OS-JADYEN) 500 MG tablet Take 1 tablet by [...] Diagnosed Date Recurrent major depressive disorder[facility] (H24[facility] 08/29/2021 Status epilepticus 06/15/2019 CKD [...] 09/12/2010 Generalized osteoarthritis of hand 08/17/2010 09/12/2010 Encounters Date Type Department Care Team Description 07/10/2023 3:21 PM CDT - 07/10/2023 6:48 PM CDT Emergency [facility] Emergency Dept [address] [place] [address] Folrina Soler MD Abdominal pain, unspecified abdominal location; Constipation, unspecified constipation type; Thrombocytopenia (H24) Discharge Disposition: Home or Self Care 07/10/2023 Travel 06/18/2023 3:50 PM CDT - 06/18/2023 11:59 PM CDT Hospital Encounter [facility] [address] [place] [address] René Doss MD Altered bowel habits Discharge Disposition: Home or Self Care 06/18/2023 Travel 06/11/2023 Travel from Last 3 Months Immunizations Name Administration Dates Next Due DTaP, Unspecified 03/25/2015 Flu 65+ Years 12/29/2018,12/23/2017,12/20/2016 Influenza (H1N1) 04/22/2009 Influenza (High Dose) 3 danisha nt vaccine 01/06/2016,01/11/2015,01/08/2014 Influenza (IIV3) PF 02/03/2013, 2,02/01/2011,2009,12/29/2008,01/21/2008,01/28/2007,1 04/15/2005,01/23/2005,01/12/2004, 003,02/20/2002 Influenza, seasonal, injectable, PF 02/01/2011 Pneumo Conj 13-V (2010&after) 03/25/2015 Pneumococcal 23 valent 02/21/2011,04/09/1999 Td (Adult), Adsorbed 10/10/2006,10/06/1996 Zoster recombinant adjuvante d (SHINGRIX) 09/11/2018,01/02/2018 Family History Medical History Relation Comments Diabetes Brother Cancer Father Diabetes Maternal Grandmother C.A.D. Mother Breast Cancer Paternal Grandmother Diabetes Sister Relation Status Comments Brother Father (Age 60 ) lympahtic can cer Maternal Grandmother Mother (Age 65) heart disease Paternal Grandmother Sister Social History Tobacco Use Types Packs/Day Years [...] 160 cm (5' 3) 04/29/2019 9:37 PM MANAGER MARKETING COMMUNICATIONS Body Mass Index 33.39 04/29/2019 9:37 PM MANAGER MARKETING COMMUNICATIONS Plan of Treatment Health Maintenance Due Date Last Done Comments ANNUAL REVIEW OF HM ORDERS 1940 DEPRESSION ACTION PLAN 1940 DEXA 1940 DIABETIC FOOT EXAM 1940 PHQ-9 1940 RSV VACCINE ( & 60+) (1 - 1-dose 60+ series) 2000 FALL RISK ASSESSMENT 2005 MICROALBUMIN 10/22/2013 07/23/2013, 05/29/2012 A1C 10/29/2019 04/30/2019, 01/07, 01/19/2018, Additional history exists LIPID 06/14/2020 06/15/2019 EYE EXAM 07/25/2021 07/25/2020 ADVANCE CARE PLANNING 01/21/2023 01/21/2018 BMP 10/09/2023 07/10/2023, 06/07, 06/25/2019, Additional history exists MEDICARE ANNUAL WELLNESS VISIT 12/22/2023 12/21/2022, 12/20/2021, 05/11/2020 HEMOGLOBIN 01/09/2024 07/10/2023, 06/07, 06/25/2019, Additional history exists DTAP/TDAP/TD IMMUNIZATION (2 - Tdap) 03/25/2025 03/25/2015, 03/25/2015, 10/10/2006, Additional history exists Pneumococcal Vaccine: 65+ Years Completed 03/25/2015, 02/21/2011, 04/09/1999 ZOSTER IMMUNIZATION Completed 09/11/2018, 8 PARATHYROID Completed 05/01/2019, 04/09, 02/24/2019, Additional history exists URINALYSIS Completed 06/15/2019, 04/09, 04/23/2019, Additional history exists ALK PHOS Completed 06/16/2019, 12/2019, 06/15/2019, Additional history exists PHOSPHORUS Completed 06/18/2019, 06/06, 04/30/2019, Additional history exists INFLUENZA VACCINE Completed 01/10/2023, , 01/19/2022, Additional history exists COVID-19 Vaccine Completed 04/23/2023, , 01/19/2022, Additional history exists HPV IMMUNIZATION Aged Out No longer e ligible based on patient's age to complete this topic IPV IMMUNIZATION Aged Out No longer e ligible based on patient's age to complete this topic MENINGITIS IMMUNIZATION Aged Out No l onger eligible based on patient's age to complete this topic RSV MONOCLONAL ANTIBODY Aged Out No l onger eligible based on patient's age to complete this topic Procedures Procedure Name Priority Date/Time Associated Diagnosis [...] PARATHYROID HORMONE INTACT Routine 05/01/2019 6:40 AM MANAGER MARKETING COMMUNICATIONS KAYLA (acute kidney injury) (H) HEMOGLOBIN A1C Routine 04/30/2019 7:17 AM MANAGER MARKETING COMMUNICATIONS KAYLA (acute kidney injury) (H) ALBUMIN RANDOM [...] nonemergent basis. FLORINA CARRENO MD SYSTEM ID: ??[id number] Narrative 07/10/2023 4:[address] ABDOMEN [...] nonemergent basis. FLORINA CARRENO MD SYSTEM ID: [id number] Florina Soler MD IMG CT ORDERABLES * Extra Green Top (Redkey Heparin) ON ICE (07/10/2023 3:49 PM CDT) Pathologist [facility] Hold Specimen [facility] 07/10/2023 5:02 PM CDT [facility] Blood VENOUS LINE / Unknown Venipuncture / Unknown 07/10/2023 3:49 PM CDT 07/10/2023 3:53 PM CDT Florina Soler MD LAB - BLOOD ORDERA BLES LABORATORY [facility] Acute Care Lab [address] [facility] Lab (1st floor, no room number) [place] [address] * (ABNORMAL) CBC with platelets and differential [...] LAB - BLOOD ORDERA BLES [facility]AT[facility] Acute [facility] Lab [address] Lab (1st floor, no room number) [place] [address], [facility] * (ABNORMAL) Basic metabolic panel (07/10/2023 3:49 PM CDT) [facility] Sodium 143 135 - 145 mmol/L [...] - 29 mmol/L 07/10/2023 4:24 PM CDT LABORATORY Anion Gap 17(H) 7 - 15 [...] MD LAB - BLOOD ORDERA BLES LABORATORY [facility] Acute Care Lab [address] Lab (1st floor, no room number) [place] [address], [facility] * Phosphorus (06/18/2019 4:05 AM CDT) Phosphorus 4.4 2.5 - 4.5 mg/dL 06/18/2019 4:38 AM CDT [facility] Blood specimen (specimen) 06/18/2019 4:05 AM CDT 06/18/2019 4:16 AM CDT Philip Lees MD LAB - BLOOD ORDERABL ES [facility] [address] [place] [address], [facility] [phone] * (ABNORMAL) Comprehensive metabolic panel (06/16/2019 5:15 AM CDT) Sodium 145(H) 133 - 144 mmol/L 06/16/2019 5:38 AM T [facility] Potassium 4.0 3.4 - 5.3 mmol/L 06/16/2019 5:38 AM [facility] Chloride 114(H) 94 - 109 mmol/L 06/16/2019 5:38 AM [facility] Carbon Dioxide 25 20 - 32 mmol/L [...] 49(L) >60 mL/min/{1 .73_m2} 06/16/2019 5:45 AM T [facility] Comment: GFR Calc Starting 03/25/2018, serum creatinine based estimated GFR (eGFR) will be calculated using the Chronic Kidney Disease Epidemiology Collaboration (CKD-EPI) equation. Calcium 8.1(L) 8.5 - 10.1 mg/dL 06/16/2019 5:45 AM T [facility] Bilirubin Total 0.6 0.2 - 1.3 mg/dL 06/16/2019 5:47 AM T [facility] Albumin 2.7(L) 3.4 - 5.0 g/dL 06/16/2019 5:47 AM [facility] Protein Total 5.6(L) 6.8 - 8.8 g/dL 06/16/2019 5:47 AM [facility] Alkaline Phosphatase 67 40 - 150 U/L 06/16/2019 5:47 AM [facility] ALT 17 0 - 50 U/L 06/16/2019 5:47 AM [facility] AST 13 0 - 45 U/L 06/16/2019 5:47 AM [facility] Blood specimen (specimen) 06/16/2019 5:15 AM CDT 06/16/2019 5:26 AM CDT Nick Coronel MD LAB - BLO OD ORDERABLES [facility] [address], [place] [address], [place] [phone] * (ABNORMAL) UA reflex to Microscopic and Culture (06/15/2019 10:01 PM CDT) Color Urine Light Yellow 06/15/2019 10:19 PM CDT [facility] Appearance Urine Clear 06/15/19 20 10:19 PM T [facility] Glucose Urine 150(A) NEG^Nega tive mg/dL 06/15/2019 10:19 PM CDT [facility] Bilirubin Urine Negative NEG^Nega tive 06/15/2019 10:19 PM T [facility] Ketones Urine Negative NEG^Nega tive mg/dL 06/15/2019 10:19 PM T [facility] Specific [place] Urine 1.019 1.003 - 1.035 06/15/2019 10:19 PM T [facility] Blood Urine Negative NEG^Nega tive 06/15/2019 10:19 PM T [facility] pH Urine 7.5(H) 5.0 - 7.0 pH 06/15/2019 10:19 PM [facility] Protein Albumin Urine 30(A) NEG^Nega tive mg/dL 06/15/2019 10:19 PM T [facility] Urobilinogen mg/dL Normal 0.0 - 2.0 mg/dL 06/15/2019 10:19 PM [facility] Nitrite Urine Negative NEG^Nega tive 06/15/2019 10:19 PM T [facility] Leukocyte Esterase Urine Negative NEG^Nega tive 06/15/2019 10:19 PM [facility] Source Catheterized Urine 06/15/2019 10:09 PM [facility] RBC Urine <1 0 - 2 /HPF 06/15/2019 10:19 PM [facility] WBC Urine 2 0 - 5 /HPF 06/15/2019 10:19 PM [facility] Squamous Epithelial /HPF Urine 2(H) 0 - 1 /HPF 06/15/2019 10:19 PM [facility] Mucous Urine Present(A) NEG^Nega tive /LPF 06/15/2019 10:19 PM [facility] Urine specimen collection, catheterized (procedure) URINE SPECIMEN COLLECTION, CATHETERIZED / Unknown 06/15/2019 10:01 PM CDT 06/15/2019 10:09 PM CDT Nick Coronel MD LAB - URI NE ORDERABLES Performing Organization Address City/State/[facility] Co de Phone Number [facility] [address] [place] [address] [address], [facility] [phone] * (ABNORMAL) Lipid panel reflex to direct LDL (06/15/2019 2:27 AM CDT) Cholesterol 122 <200 mg/dL 06/15/2019 3:04 AM CDT [facility] Triglycerides 329(H) <150 mg/dL 06/15/2019 3:04 AM CDT [facility] Comment: Borderline high: ??150-199 mg/dl High: ? 200-499 mg/dl Very high: ? >499 mg/dl HDL Cholesterol 25(L) >49 mg/dL 0 3:04 AM CDT [facility] LDL Cholesterol Calculated 31 <100 mg/dL 06/15/2019 3:04 AM CDT [facility] Comment:Desirable: <100 mg/d l Non HDL Cholesterol 97 <130 mg/dL 06/15/2019 3:04 AM CDT [facility] Blood specimen (specimen) 06/15/2019 2:27 AM CDT 06/15/2019 2:28 AM CDT Brown Crawford MD LAB - BLOOD ORDERABL ES Performing Organization Address [facility] Co de Phone Number [facility] [address] [place] [address], [facility] [phone] * (ABNORMAL) Parathyroid Hormone Intact (05/01/2019 6:40 AM [employer]NA[employer] MARKET[employer] COMMUNICATIONS) Parathyroid Hormone Intact <7(L) 18 - 80 pg/mL 05/01/2019 2:23 PM MANAGER MARKETING COMMUNICATIONS [facility] Blood specimen (specimen) 05/01/2019 6:40 AM MANAGER MARKETING COMMUNICATIONS 05/01/2019 6:41 AM MANAGER MARKETING COMMUNICATIONS Dunia Wilkins MD LAB - BLOOD ORDERABL ES Performing Organization Address City/[facility]/ZIP Co de Phone Number [facility] [address] [place] [address] * (ABNORMAL) Hemoglobin A1c (04/30/2019 7:17 AM MANAGER MARKETING COMMUNICATIONS) Hemoglobin A1C 7.8(H) 0 - 5.6 % 04/30/2019 7:49 AM MANAGER MARKETING COMMUNICATIONS [facility] Comment: Normal <5.7% Prediabetes 5.7-6.4% ??Diabetes 6.5% or higher - adopted from ADA consensus guidelines. Blood specimen (specimen) 04/30/2019 7:17 AM MANAGER MARKETING COMMUNICATIONS 04/30/2019 7:18 AM MANAGER MARKETING COMMUNICATIONS Becki Perez MD LAB - BLOOD ORDERABL ES [facility] [address] [place] [address], [facility] [phone] * Microalbumin quantitative random urine (07/23/2013 2:56 PM CDT) Creatinine Urine 38 mg/dL [facility] Albumin Urine mg/L <5 Urine Microalbumin lowest reportable value has been changed from 2 mg/L to 5 mg/L due to a methodology change on July. mg/L [facility] Albumin Urine mg/g Cr Unable to calculate 0 - 25 mg/g Cr [facility] Urine specimen (specimen) 07/23/2013 2:56 PM CDT 07/23/2013 3:01 PM CDT Jose Sanchez MD LAB - URINE ORDERABL ES [facility] from Last 3 Months or Most Recently Relevant to Health Maintenance Advance Directives For more information, please contact: [phone] * Full Code (Latest Code Status on [...] with patie nt/legal decision maker Care Teams Band Sawmill Operator Relationship Specialty [place] [address] [place] [address] PCP - General 04/30/17 Leanne Shrestha PA-C [address] [place] [address] [address] Physician [employer] Band Director Urology 07/27/21
--- OUTSIDE RECORDS SUMMARY | 2023-07-17 12:21 | XMS_ITS | Clinical Summary ---
Author Name Unknown Organization [facility] Address [address], [place] [address] Phone Care Team Providers Care Cap Lining Machine Operator Name Role Phone Unavailable Primary Care Provider Unavailabl e Allergies Active Allergy Reactions Criticality Noted Date Comments Amoxicillin Nausea Only 07/02/2002 nausea Medications Medication Sig Dispensed Refills Start Date End Date Status polyethylene glycol (MIRALAX) powder prn 0 10/11/2015 Active senna-docusate sodium (SENOKOT-S) 8.6-50 MG tablet Take 1 tablet by mouth 1 (one) time each day if needed 0 10/11/2015 Active loratadine (CLARITIN) 10 MG tablet Take 0.5 tablets by mouth 1 (one) time each day 0 01/15/2013 Active atorvastatin (LIPITOR) 80 MG tablet 1 tab daily 0 10/11/2015 Active acetaminophen (TYLENOL 8 HOUR) 650 MG 8 hr tablet Take 650 mg by mouth every 8 (eight) hours if needed 0 01/15/2013 Active hydrocortisone (ANUSOL-HC) 2.5 % rectal cream Apply rectally as needed 0 06/30/2018 Active Multiple Vitamins-Minerals (PRESERVISION AREDS 2) capsule Take 1 tablet by mouth twice a day 0 10/11/2015 Active Ferrous Sulfate (IRON) 325 (65 Fe) MG tablet Take 1 tablet by mouth 2 (two) times a week 0 01/15/2013 Active omega-3 acid ethyl esters (LOVAZA) 1 g capsule Take 1 g by mouth 2 (two) times a day 01/15/2013 Active gabapentin (NEURONTIN) 300 MG capsule Take 300 mg by mouth in the morning and 300 mg in the evening. Active insulin glargine (Lantus SoloStar) 100 UNIT/ML injection Inject 8 Units under the skin in the morning. 06/11/2019 Active insulin aspart (NovoLOG FLEXPEN) 100 UNIT/ML injection 5 units with small meals, 10 units with large meals. Use a 2/50 >150 sliding scale. Up to 40 units daily 05/05/2019 Active diclofenac (VOLTAREN) 1 % topical gel Apply 1 application topically 2 (two) times a day Active levETIRAcetam (KEPPRA XR) 750 mg tablet sustained-release 24 hour 24 Hour tablet Take 750 mg by mouth every night 05/28/2020 Active FLUoxetine (PROzac) 40 MG capsule Take 40 mg by mouth 1 (one) time each day 03/19/2021 Active cholecalciferol (VITAMIN D-3) 25 MCG (1000 UT) tablet Take 2,000 Units by mouth 1 (one) time each day 3 days per week - Saturday, Saturday and Saturday. Active aspirin (ST SALTY) 81 MG EC tablet Take 1 tablet by mouth daily Active bumetanide (BUMEX) 1 MG tablet TAKE 1 TABLET BY MOUTH 1 TIME EACH DAY. 90 tablet 3 08/16/2022 Active Continuous Blood Gluc Sensor (FreeStyle Haile 2 Sensor) [facility] APPLY EVERY 14 DAYS. TO BE USED TO READ BLOOD SUGARS PER AIRCRAFT ENGINE INSTALLER'S DIRECTIONS. 07/09/2022 Active Denosumab 60 MG/ML solution prefilled syringe Inject 60 mg under the skin every 6 (six) months 11/28/2021 Active Oyster Shell Calcium 500 MG tablet TAKE 2 TABLETS (1,000 MG) BY MOUTH ONCE DAILY WITH A MEAL. 08/26/2022 Active Ozempic, 0.25 or 0.5 MG/DOSE, 2 MG/3ML solution pen-injector INJECT 0.25 MG UNDER THE SKIN ONCE WEEKLY 07/10/2022 Active Active Problems Problem Noted Date Diagnosed Date Albuminuria 10/26/2021 Disorder of kidney due to diabetes mellitus 10/07 History of parathyroidectomy 06/12/2019 History of acute renal failure 06/12/2019 Hypercalcemia 12/30/2017 Vitamin D deficiency 10/11/2016 Chronic kidney disease, stage 4 (severe) 013 Essential (primary) hypertension 01/15/2013 Gout 01/15/2013 Encounters Date Type Department Care Team Description 07/11/2023 Telephone [facility] [address] [place] [address] Jaimee Jacob RN 05/01/2023 Telephone [facility] [address] [place] [address] Jaimee Jacob RN Future orders 04/24/2023 1:00 PM [facility] Office Visit [facility] [address] [place] [address] Ruel Sanchez MD Chronic kidney disease, stage 4 (severe) (CMS-HCC) (Primary Dx); Essential (primary) hypertension; Idiopathic gout, not otherwise specified; Hypercalcemia; History of parathyroidectomy; History of acute renal failure; Albuminuria, not otherwise specified; Vitamin D deficiency, not otherwise specified from Last 3 Months Immunizations Name Administration Dates Next Due DTaP, Unspecified 03/25/2015 Fluzone High-Dose 01/19/2022,02/03/2021,12/29/19 19 H1N1 All Forms 04/22/2009 Influenza (IM) Preservative Free 12/29/2018,01/07 Influenza Split High Dose Pr eservative Free IM 12/29/2018,12/23/2017,12/20/2016,01/05,01/11/2015,01/08/2014 Influenza TIV (IM) 02/03/2013, 2,02/01/2011,12/08,12/29/2008,01/21/2008,01/28/2007 ,02/13/2006,01/23/2005,01/12/2004,02/06,02/20/2002 Influenza Trivalent Adjuvanted 12/29/2018,2017,12/20/2016 Influenza, Injectable, Quadr ivalent, Preservative Free 12/16/2019 Influenza, Quadrivalent 12/29/2018 Influenza, Unspecified 02/01/2020 Moderna Sars-cov-2 Vaccination 01/19/2022 PPD Test 04/13/2019 Pfizer Sars-cov-2 Vaccination 06/21/2020, 021 Pneumococcal Conjugate 13-Valent 03/25/2015 Pneumococcal Polysaccharide 02/21/2011, 0 Td 10/10/2006,10/06/1996 Tdap 03/25/2015 Zoster Recombinant 09/11/2018,01/02/2018 Family History Medical History Relation Comments Malignant neoplastic disease Father Heart disease Mother Diabetes mellitus Sibling Relation Status Comments Father Mother Sibling Social History Tobacco Use Types Packs/Day Years [...] Sign Reading Time Taken Comments Blood Pressure 141/122 10/11/2022 1:30 PM CDT Pulse 65 10/11/2022 1:30 PM CDT Temperature 36.5 ??C (97.7 ??F) 10/11/2022 1:30 PM CD T Respiratory Rate - - Oxygen Saturation 98% 10/11/2022 1:30 PM CDT Inhaled Oxygen Concentration - - Weight 78.3 kg (172 lb 9.6 oz) 10/11/2022 1:30 P M CDT Height 160 cm (5' 3) 10/11/2022 1:30 PM CDT Body Mass Index 30.57 10/11/2022 1:30 PM CDT Plan of Treatment Health Maintenance Due Date Last Done Comments Diabetic Foot Exam 1950 Ophthalmology Exam 1950 COVID-19 Vaccine (2022-2 4 season) 2022 01/19/2022, 02/07/2021, 06/21/2020, Additional history exists Influenza Vaccine (Season Ended) 2023 02/01/2020, 12/16/2019, 12/29/2018, Additional history exists Pneumococcal PPSV23/PCV13 65 + Years / High and Highest Risk Completed 03/25/2015, 02/21/2011, 04/09/1999 Insurance Payer Benefit Plan / Group Subscriber ID Effective Dates Phone Address Type PM INTERFACED INSURANCE PM INTERFACED INSURANCE - OPEN 2012-04/07 [address] [place] [address] PM INTERFACED INSURANCE PM INTERFACED INSURANCE - OPEN 2019-Pres ent [address] [address] [place] [address]
--- OUTSIDE RECORDS SUMMARY | 2023-07-17 12:21 | XMS_ITS | Encounter Summary ---
Author Name Unknown Organization [facility] Address [address] [place] [address] Phone Care Team Providers Care Paving And Surfacing Labourer Name Role Phone Unavailable Primary Care Provider Unavailabl e Encounter Details Date Type Department Care Team (Late st Contact Info) Description 07/11/2023 Telephone [facility] [address] [place] [address] Jaimee Jacob RN Social History Tobacco Use Types Packs/Day Years [...] Telephone Encounter - Jaimee Jacob RN - 07/11/2023 1:42 PM CDT Vianey was in the ER for constipation and had a CT scan. Lesions seen on bilateral kidneys. She called to inform us and see if you wanted to do anything. She was also due a RP and Hgb for you this month. They chantal labs at ER so I have copied them below as well CT ABDOMEN PELVIS W/O CONTRAST 07/10/2023 4:19 [...] on a nonemergent basis. FLORINA CARRENO MD Component Latest Ref Rng 07/10/2023 3:49 PM WBC 4.0 - 11.0 10e3/uL 10.0 RBC Count 3.80 - 5.20 10e6/uL 4.37 Hemoglobin 11.7 - 15.7 g/dL 12.7 Hematocrit 35.0 - 47.0 % 37.6 MCV 78 - 100 fL 86 MCH 26.5 - 33.0 pg 29.1 MCHC 31.5 - 36.5 g/dL 33.8 RDW 10.0 - 15.0 % 13.1 Platelet Count 150 - 450 10e3/uL 136 (L) % Neutrophils % 85 % Lymphocytes % 8 % Monocytes % 7 % Eosinophils % 0 % Basophils % 0 % Immature Granulocytes % 0 NRBCs per 100 WBC <1 /100 0 Absolute Neutrophils 1.6 - 8.3 10e3/uL 8.4 (H) Absolute Lymphocytes 0.8 - 5.3 10e3/uL 0.8 Absolute Monocytes 0.0 - 1.3 10e3/uL 0.7 Absolute Eosinophils 0.0 - 0.7 10e3/uL 0.0 Absolute Basophils 0.0 - 0.2 10e3/uL 0.0 Absolute Immature Granulocytes <=0.4 10e3/uL 0.0 Absolute NRBCs 10e3/uL 0.0 Sodium 135 - 145 mmol/L 143 Potassium 3.4 - 5.3 mmol/L 3.5 Chloride 98 - 107 mmol/L 103 Carbon Dioxide (CO2) 22 - 29 mmol/L 23 Anion Gap 7 - 15 mmol/L 17 (H) Urea Nitrogen 8.0 - 23.0 mg/dL 35.2 (H) Creatinine 0.51 - 0.95 mg/dL 1.49 (H) GFR Estimate >60 mL/min/1.73m2 35 (L) Calcium 8.8 - 10.2 mg/dL 9.8 Glucose 70 - 99 mg/dL 176 (H) Legend: (L) Low (H) High documented in this encounter Plan of Treatment Not on file documented as of this encounter Visit Diagnoses Not on filedocumented in this encounter
--- OUTSIDE RECORDS SUMMARY | 2023-07-17 12:21 | XMS_ITS | Encounter Summary ---
Author Name Unknown Organization [facility] Address [address] [place] [address] Phone Care Team Providers Care Teacher Public Health Name Role Phone Alvin Borrego NP Primary Care Provider [phone] Reason for Visit * Reason Comments Med Refill Encounter Details Date Type Department Care Team (Late st Contact Info) Description 08/02/2021 Refill [facility] [address] [place] [address] Ruel Sanchez MD [address] [place], [place] [id number] Social History Tobacco Use Types Packs/Day Years [...] on file documented as of this encounter Plan of Treatment Not on file documented as of this encounter Visit Diagnoses Not on filedocumented in this encounter Care Teams Teacher Public Health Relationship Specialty Start Date End Date Alvin Borrego NP [address] [place] [address] PCP - General 04/15/23 05/09/23 documented as of this encounter
--- OUTSIDE RECORDS SUMMARY | 2023-07-17 12:22 | XMS_ITS | Encounter Summary ---
Author Name Unknown Organization [facility] Address [address] [place] [address]. [place] [address] Care Team Providers Care County Home Demonstrator Name Role Phone Sukh Borrego MD Primary Care Provider [phone] Leanne Shrestha PA-C Unavailable [phone] Encounter Details Date Type Department Care Team (Latest Contact Info) Description 06/11/2023 Travel Social History Tobacco Use Types Packs/Day Years Used Date Smoking Tobacco: Former Cigarettes Smokeless Tobacco: Never Alcohol Use Standard Drinks/Week Comments Yes 0 [...] on filedocumented in this encounter Care Teams County Home Demonstrator Relationship Specialty [place] [address] [place] [address] PCP - General 04/30/17 Leanne Shrestha PA-C [address] [facility] Thania [place]OUZAAALINA [address] Physician Heavy Equipment Field Mechanic Urology 07/27/21 documented as of this encounter
--- OUTSIDE RECORDS SUMMARY | 2023-07-17 12:22 | XMS_ITS | Encounter Summary ---
Author Name Unknown Organization [facility] Address [address] [place] [address]. [place] [address] Care Team Providers Care Manager Health Name Role Phone Sukh Borrego MD Primary Care Provider [phone] Leanne Shrestha PA-C Unavailable [phone] Encounter Details Date Type Department Care Team (Latest Contact Info) Description 07/10/2023 Travel Social History Tobacco Use Types Packs/Day [...] on filedocumented in this encounter Care Teams Manager Health Relationship Specialty [place] [address] [place] [address] PCP - General 04/30/17 Leanne Shrestha PA-C [address] [facility] Thania SOUZAAALINA [address] Physician Bag Machine Tender Urology 07/27/21 documented as of this encounter
--- OUTSIDE RECORDS SUMMARY | 2023-07-17 12:22 | XMS_ITS | Encounter Summary ---
Author Name Unknown Organization [facility] Address [address] [place] [address]. [place] [address] Care Team Providers Care Aging Department Supervisor Name Role Phone Sukh Borrego MD Primary Care Provider Leanne Shrestha PA-C Unavailable Reason for Visit * Reason Comments Abdominal Pain Constipation Encounter Details Date Type Department Care Team (Late st Contact Info) Description 07/10/2023 3:21 PM CDT - 07/10/2023 6:48 PM CDT Emergency [facility] [address] [place] [id number] Florina Soler MD [facility] [address] [place] [address] [place] [id number] Abdominal pain, unspecified abdominal location; Constipation, unspecified constipation type; Thrombocytopenia (H24) Discharge Disposition: Home or Self Care Social History Tobacco Use Types Packs/Day Years [...] on file documented as of this encounter Last Filed Vital Signs Vital Sign Reading Time Taken Comments Blood Pressure 117/53 07/10/2023 6:15 PM CDT Pulse 85 07/10/2023 6:15 PM CDT Temperature 36.6 ??C (97.9 ??F) 07/10/2023 3:33 PM CD T Respiratory Rate 18 07/10/2023 3:33 PM CDT Oxygen Saturation 98% 07/10/2023 6:20 PM CDT Inhaled Oxygen Concentration - - Weight - - Height - - Body Mass Index - - documented in this encounter Discharge Instructions * Discharge Instructions* Florina Soler MD - 07/10/2023 6:24 PM CDT Please continue with MiraLAX as discussed. Now that the stool has been removed from your rectum, hopefully additional bowel movements will pass more spontaneously. Please follow-up with your primary care provider to discuss the incidental findings noted today including the nonspecific kidney lesions. Return to ER if you develop any new or troubling symptoms such as worsened pain, vomiting, bloody stool or any other concerns. * Attachments The following attachments cannot be sent through Care Everywhere. * Constipation (Portuguese) documented in this encounter Medications at Time of Discharge Medication Sig Dispensed Refills Start Date End Date acetaminophen (TYLENOL) 500 MG tablet Take 1,000 mg by mouth every 8 hours as needed for mild pain allopurinol (ZYLOPRIM) 100 MG tablet Take 200 mg by mouth daily atorvastatin (LIPITOR) 80 MG tabletIndications:Pure hypercholesterolemia Take 0.5 tablets (40 mg) by mouth At Bedtime 06/21/2019 bumetanide (BUMEX) 1 MG tablet Take 1 mg by mouth 2 times daily calcitRIOL (ROCALTROL) 0.25 MCG capsuleIndications:Hyperca lcemia,Hyperparathyroidism (H24) Take 1 capsule (0.25 mcg) by mouth daily 30 capsule 05/02/2019 calcium carbonate (OS-BRIJESH) 500 MG tablet Take 1 tablet by mouth 2 times daily cholecalciferol 25 MCG (1000 UT) TABS Take 1 tablet by mouth daily famotidine (PEPCID) 20 MG tabletIndications:Gastroes ophageal reflux disease without esophagitis Take 1 tablet (20 mg) by mouth daily 30 tablet 1 03/29/2019 ferrous sulfate (IRON) 325 (65 FE) MG tablet Take 325 mg by mouth twice a week On Mondays and gabapentin (NEURONTIN) 300 MG capsule Take 300 mg by mouth 2 times daily insulin aspart (NOVOLOG FLEXPEN) 100 UNIT/ML injection Inject Subcutaneous 3 times daily (with meals) Inject as per sliding scale: <70 call COTTON WEIGHER OPERATOR and use hypoglycemic protocol if 200 - 249 = 2 unit 250 - 299 = 4 units 300 - 349 = 6 units 350 - 399 = 8 units 400 - 449 = 10 units 450+ = 12 units call MD insulin aspart (NOVOLOG FLEXPEN) 100 UNIT/ML penIndications:Type 2 diabetes mellitus with diabetic neuropathy, with long-term current use of insulin (H) Inject 1 unit per 20 grams of carbohydrates three times daily with meals. 06/21/2019 insulin glargine (BASAGLAR KWIKPEN) 100 UNIT/ML penIndications:Type 2 diabetes mellitus with diabetic neuropathy, with long-term current use of insulin (H) Inject 10 Units Subcutaneous daily 06/21/2019 levETIRAcetam (KEPPRA) 750 MG tabletIndications:Status epilepticus (H) Take 1 tablet (750 mg) by mouth every 12 hours 06/21/2019 documented as of this encounter ED Notes * Babar Gutierrez RN - 07/10/2023 6:44 PM CDT Discharged home with neighbor transporting, daughter called while pt was discharging inquiring if it was possible to do a colonoscopy while pt is here. Reminded that she would need to schedule that as outpatient and follow-up with primary. Daughter agreeable with plan. Belongings returned. * Babar Gutierrez RN - 07/10/2023 3:35 PM CDT Here for chronic constipation and abdominal pain/rectal pain\from straining trying to have a BM. Last BM 6 days ago, took Milaax, many times without relief. No emesis, minimal gas. Triage Assessment (Adult) Row Name 07/10/23 3891 Triage Assessment Airway WDL WDL Respiratory WDL Respiratory WDL WDL Skin Circulation/Temperature WDL Skin Circulation/Temperature WDL WDL Peripheral/Neurovascular WDL Peripheral Neurovascular WDL WDL Cognitive/Neuro/Behavioral WDL Cognitive/Neuro/Behavioral WDL WDL * Emily Thayer RN - 07/10/2023 3:21 PM CDT Bed: ED21 Expected date: 07/10/23 Expected time: 3:20 PM Means of arrival: Ambulance Comments: NF 331 82F constipated * Florina Soler MD - 07/10/2023 3:21 PM CDT History Chief Complaint: Abdominal Pain (Constipation ) The history is provided by the patient. Vianey Flores is an 82 year old female who presents for constipation. Patient says she has not had a bowel movement for the last 6 days and has also been passing minimal gas. She notes a long boutof diarrhea before her constipation onset. Patient reports that prior to that, she had been dealingwith looser stools. She reports undergoing evaluation with GI, and multiple stool studies were obtained, which she reports returned negative. She denies using antidiarrheal medications that would have predisposed to constipation. She does acknowledge a longstanding history of constipation in the past. She has been using MiraLAX at home, though this has not resulted in any alleviation of her symptoms. She denies fevers, vomiting, or any other concerns at this time. She presents to the ER via EMS. Independent Historian: None - Patient Only Review of External Notes: I reviewed a telemedicine visit about her anti-depression medication from 07/08/23. She expresses concern for constipation. Medications: Lovaza Gavalyte Allopurinol Atorvastatin Bumetanide Calcitriol Calcium carbonate Cholecalciferol Famotidine Gabapentin Insulin Levetiracetam Past Medical History: Depression Hypertensive heart and chronic kidney disease with heart failure Leukocytosis C. difficile colitis Hypoparathyroidism External hemorrhoids Anxiety Ovarian cancer Diabetes Chronic pancreatitis Albuminuria Hypercalcemia Past Surgical History: Hysterectomy Right shoulder surgery Parathyroidectomy Bladder biopsy Physical Exam Patient Vitals for the past 24 hrs: BP Temp Temp src Pulse Resp SpO2 07/10/23 1820 -- -- -- -- -- 98 % 07/10/23 1815 117/53 -- -- 85 -- -- 07/10/23 1800 121/59 -- -- 80 -- 99 % 07/10/23 1700 133/66 -- -- 77 -- 95 % 07/10/23 1645 131/63 -- -- 72 -- 100 % 07/10/23 1630 135/65 -- -- 74 -- 100 % 07/10/23 1600 135/66 -- -- 71 -- 100 % 07/10/23 1550 132/64 -- -- 73 -- 98 % 07/10/23 1533 108/59 97.9 ??F (36.6 ??C) Oral 78 18 95 % 07/10/23 1529 -- 97.8 ??F (36.6 ??C) Oral -- -- -- Physical Exam General: Well-nourished Speaking in full sentences Eyes: Conjunctiva without injection or scleral icterus ENT: Moist mucous membranes Nares patent Pinnae normal Neck: Full ROM No stiffness appreciated Resp: Lungs CTAB No crackles, wheezing or audible rubs Good air movement CV: Normal rate, regular rhythm S1 and S2 present No murmur, gallop or rub GI: BS present Abdomen soft without distention Diffuse mild tenderness No palpable pulsatile mass No guarding or rebound tenderness Skin: Warm, dry, well perfused No rashes or open wounds on exposed skin MSK: Moves all extremities No focal deformities or swelling Neuro: Alert Answers questions appropriately Moves all extremities equally Gait stable Psych: Normal affect, normal mood Emergency Department Course Imaging: Abd/pelvis CT no contrast - Stone Protocol Final Result IMPRESSION: 1. Findings compatible with constipation without evidence of mechanical bowel obstruction. 2. Stable size of indeterminate bilateral renal lesions, consider renal protocol CT or MRI for definitive characterization on a nonemergent basis. FLORINA CARRENO MD SYSTEM ID: [id number] Laboratory: Labs Ordered and Resulted from Time of ED Arrival to Time of ED Departure BASIC METABOLIC PANEL - Abnormal Result Value Sodium 143 Potassium 3.5 Chloride 103 Carbon Dioxide (CO2) 23 Anion Gap 17 (*) Urea Nitrogen 35.2 (*) Creatinine 1.49 (*) GFR Estimate 35 (*) Calcium 9.8 Glucose 176 (*) CBC WITH PLATELETS AND DIFFERENTIAL - Abnormal WBC Count 10.0 RBC Count 4.37 Hemoglobin 12.7 Hematocrit 37.6 MCV 86 MCH 29.1 MCHC 33.8 RDW 13.1 Platelet Count 136 (*) % Neutrophils 85 % Lymphocytes 8 % Monocytes 7 % Eosinophils 0 % Basophils 0 % Immature Granulocytes 0 NRBCs per 100 WBC 0 Absolute Neutrophils 8.4 (*) Absolute Lymphocytes 0.8 Absolute Monocytes 0.7 Absolute Eosinophils 0.0 Absolute Basophils 0.0 Absolute Immature Granulocytes 0.0 Absolute NRBCs 0.0 Emergency Department Course & Assessments: Interventions: Medications Enema Compound (docusate/mineral oil/NaPhos) NO MAG CIT PREMIX (226 mLs Rectal $Given 07/10/23 6932) Assessments: 153 I obtained history and examined the patient as noted above. 1808 I rechecked and updated the patient. She had a bowel movement and is feeling better. Repeat abdominal exam is soft and non-tender. Independent Interpretation (X-rays, CTs, rhythm strip): None Consultations/Discussion of Management or Tests: None Social Determinants of Health affecting care: None Disposition: The patient was discharged. Impression & Plan Medical Decision Making: Melly Flores is an 82-year-old female presenting to the emergency department for evaluation of abdominal pain. VS on presentation unremarkable. History, exam, and ED course as noted above. Her presenting history and ED course is suspicious for constipation and likely stool impaction. Advanced imaging pursued, revealing increased stool burden, including to the rectal area, but no evidence of mechani brijesh bowel obstruction. Patient was informed of incidentally noted renal lesions, which appear stable compared with previous, though can be further discussed with primary care provider/nephrology as an outpatient. Her laboratory studies reveal normal WBC count, though mild thrombocytopenia. On review of previous records, this has been noted previously, though should be rechecked as an outpatient. Andrea rebecca was provided a enema, with good stool expulsion. On reassessment, she is feeling markedly improved. Repeat abdominal exam is soft without any localizing tenderness. I do feel she is stable fordischarge from the ED. Recommended continuation of MiraLAX now that stool impaction has resolved. Irecommended ongoing close follow-up with primary care provider in 2-3 days and nephrology to discuss symptoms and incidental findings requiring follow-up. She may return to the ER in the meantime with any new or troubling symptoms such as worsening pain, bloody stool, vomiting, fevers, or any otherconcerns. Questions have been answered prior to discharge. Diagnosis: ICD-10-CM 1. Abdominal pain, unspecified abdominal location R10.9 2. Constipation, unspecified constipation type K59.00 3. Thrombocytopenia (H24) D69.6 Scribe Disclosure: Yani Dixon, am serving as a scribe at 5:13 PM on 07/10/2023 to document services personally performed by Florina Soler MD based on my observations and the provider's statements to me. 07/10/2023 Florina Soler MD Roach, Brian Donald, MD 07/11/23 0854 documented in this encounter Plan of Treatment Not on file documented as of this encounter Procedures Procedure Name Priority Date/Time Associated Diagnosis Comments CT ABDOMEN PELVIS W/O CONTRAST STAT 07/10/2023 4:19 PM CDT EXTRA GREEN TOP (LITHIUM HEPARIN) ON ICE STAT 07/10/2023 3:49 PM CDT EXTRA TUBE STAT 07/10/2023 3:49 PM CDT CBC WITH PLATELETS AND DIFFERENTIAL STAT 07/10/2023 3:49 PM CDT CBC WITH PLATELETS & DIFFERENTIAL STAT 07/10/2023 3:49 PM CDT BASIC METABOLIC PANEL STAT 07/10/2023 3:49 PM CDT documented in this encounter Results * Abd/pelvis CT no contrast - Stone Protocol (07/10/2023 4:19 PM CDT) Anatomical Region Laterality Modality Abdomen/Pelvis, SUBRAD CT JTET DY, UMP CT ABDOMEN PELVIS, RAD CT Computed Tomography Impressions 07/10/2023 4:30 PM CDT IMPRESSION: 1. ??Findings compatible with constipation without evidence of mechanical bowel obstruction. 2. ??Stable size of indeterminate bilateral renal lesions, consider renal protocol CT or MRI for definitive characterization on a nonemergent basis. FLORINA CARRENO MD SYSTEM ID: ??[id number] Narrative 07/10/2023 4:[address] ABDOMEN [...] nonemergent basis. FLORINA CARRENO MD SYSTEM ID: [id number] Florina Soler MD IMG CT ORDERABLES * Extra Green Top ([place] Heparin) ON ICE (07/10/2023 3:49 PM CDT) Hold Specimen JIC 07/10/2023 5:02 PM CDT [facility] Blood VENOUS LINE / Unknown Venipuncture / Unknown 07/10/2023 3:49 PM CDT 07/10/2023 3:53 PM CDT Florina Soler MD LAB - BLOOD ORDERA BLES [facility] [address] [facility] Lab (1st floor, no room number) [place] [address] * (ABNORMAL) CBC with platelets and [...] LAB - BLOOD ORDERA BLES [facility] [address] Lab (1st floor, no room number) [place] [address], [facility] * (ABNORMAL) Basic metabolic panel (07/10/2023 3:49 PM CDT) Sodium 143 135 - 145 mmol/L 07/10/2023 [...] - 23.0 mg/dL 07/10/2023 4:24 PM CDT LABORATORY Creatinine 1.49(H) 0.51 - 0.95 mg/dL 07/10/2023 4:24 PM CDT [facility] GFR Estimate 35(L) >60 mL/min/1. 73m2 07/10/2023 4:24 PM CDT [facility] Calcium 9.8 8.8 - 10.2 mg/dL 07/10/2023 4:24 PM CDT LABORATORY Glucose 176(H) 70 - 99 mg/dL 07/10/2023 4:24 PM CDT LABORATORY Blood VENOUS LINE / Unknown Venipuncture / Unknown 07/10/2023 3:49 PM CDT 07/10/2023 3:53 PM CDT Florina Soler MD LAB - BLOOD ORDERA BLES LAB[facility]AT[facility] [address] [facility] Lab (1st floor, no room number) [place] [address], [facility] documented in this encounter Visit Diagnoses Diagnosis Abdominal pain, unspecified abdominal location Constipation, unspecified constipation type Thrombocytopenia (H24) Thrombocytopenia, unspecified documented in this encounter Administered Medications Inactive Administered Medications - up to 3 most recent administrations Medication Order MAR Action Action Date Dose Rate Site Enema Compound (docusate/mineral oil/NaPhos) NO MAG CIT PREMIX 226 mL, Rectal, ONCE, On Sat07/10/23 at 1635, For 1 dose, mag citrate not included due to emergency service worker recall. $Given 07/10/2023 4:59 PM CDT 226 mLs documented in this encounter Active and Recently Administered Medications Times are shown in CDT. Scheduled Medication Order 07/08/2023 07/09/2023 07/10/2023 Enema Compound (docusate/mineral oil/NaPhos) NO MAG CIT PREMIX (COMPLETED) 226 mL, Rectal, ONCE, On Sat07/10/23 at 1635, For 1 dose, mag citrate not included due to emergency service worker recall. 1659 ($Given - Provi swathi: Babar Gutierrez RN) documented in this encounter Care Teams Aging Department Supervisor Relationship Specialty [place] [address] [place] [address] PCP - General 04/30/17 Leanne Shrestha PA-C [address] [address] Physician Button Broacher Urology 07/27/21 documented as of this encounter
--- OUTSIDE RECORDS SUMMARY | 2023-07-17 12:22 | XMS_ITS | Encounter Summary ---
Author Name Unknown Organization [facility] Address [address] [place] [address]. [place] [address] Care Team Providers Care Rfid Systems Engineer Name Role Phone Sukh Borrego MD Primary Care Provider [phone] Leanne Shrestha PA-C Unavailable [phone] Encounter Details Date Type Department Care Team (Latest Contact Info) Description 06/18/2023 Travel Social History Tobacco Use Types Packs/Day [...] on filedocumented in this encounter Care Teams Rfid Systems Engineer Relationship Specialty [place] [address] [place] [address] PCP - General 04/30/17 Leanne Shrestha PA-C [address] [facility] Thania [place] [address] Physician Desktop Engineer Urology 07/27/21 documented as of this encounter
--- OUTSIDE RECORDS SUMMARY | 2023-07-17 12:22 | XMS_ITS | Encounter Summary ---
Author Name Unknown Organization [facility] Address [facility] [place] [address] Care Team Providers Care Health Careers Instructor Name Role Phone Sukh Borrego MD Primary Care Provider [phone] Leanne Shrestha PA-C Unavailable [phone] Reason for Visit * Diagnostic Imaging CT Scan (Routine) - Closed Specialty Diagnoses / Procedures Referred By Claritza rodas Referred To Contact Radiology. Diagnoses Altered bowel habits Procedures CT Abdomen Pelvis w/o Contrast René Doss MD [facility] [address] [facility] [place] [address] Referral ID Status Reason Start Date Expiration Date Visits Re quested Visits Authorized [id number] Closed 06/11/2023 06/10/2024 1 1 Encounter Details Date Type Department Care Team (Latest Contact Info) Description 06/18/2023 3:50 PM CDT - 06/18/2023 11:59 PM CDT Hospital Encounter [facility] [address] [address] René Doss MD [facility] [address] [facility] [place] [address] Altered bowel habits Discharge Disposition: Home or Self Care Social [...] on file documented as of this encounter Medications at Time of Discharge [...] mouth daily 30 capsule 05/02/2019 calcium carbonate (OS-JAYDEN) 500 MG tablet Take [...] Inject as per sliding scale: <70 call SIDE HEMMER and use hypoglycemic protocol if 200 - [...] hours 06/21/2019 documented as of this encounter Plan of Treatment Not on file documented as of this encounter Procedures Procedure Name Priority Date/Time Associated Diagnosis Comments CT ABDOMEN PELVIS W/O CONTRAST Routine 06/18/2023 4:15 PM CDT Altered bowel habits documented in this encounter Results * CT Abdomen Pelvis w/o Contrast (06/18/2023 4:15 PM CDT) Anatomical Region Laterality Modality Abdomen/Pelvis, SUBRAD CT JETT DY, UMP CT ABDOMEN PELVIS, RAD CT Computed Tomography Impressions 06/19/2023 8:23 AM CDT IMPRESSION: 1. ??No convincing acute process within the abdomen or pelvis. Small amount of stool throughout the colon. 2. ??Cholelithiasis. Nonobstructing left lower pole renal calculi. 3. ??Probable right renal hemorrhagic/proteinaceous cyst. Consider confirmation with renal ultrasound. CHIOMA PALMA MD Narrative 06/19/2023 8:[address] ABDOMEN AND PELVIS WITHOUT CONTRAST 06/18/2023 4:15 PM CLINICAL HISTORY: Altered bowel habits. TECHNIQUE: CT scan of the abdomen and pelvis was performed without IV contrast. Multiplanar reformats were obtained. Dose reduction techniques were used. CONTRAST: None. COMPARISON: Abdominal radiograph 06/15/2019. FINDINGS: LOWER CHEST: Unremarkable. HEPATOBILIARY: No liver lesion. Cholelithiasis. PANCREAS: No significant mass, duct dilatation, or inflammatory change. SPLEEN: Unremarkable. ADRENAL GLANDS: No significant nodules. KIDNEYS: Nonobstructing left lower pole renal calculi. Bilateral renal cysts, one of which in the right upper pole has peripheral calcifications; no follow-up necessary. Right lower pole hyperdense structure is most likely a proteinaceous/hemorrhagic cyst. BOWEL: No obstruction or inflammatory change. Small amount of stool within the colon. VASCULATURE: Mild to moderate atherosclerosis. LYMPH NODE AND PERITONEUM: No enlarged lymph node. No free fluid. MUSCULOSKELETAL: Lumbar fusion hardware. Degenerative changes of the lumbar spine. No aggressive osseous lesion. OTHER: None. Procedure Note Chioma Palma MD - 06/19/2023 CT ABDOMEN AND PELVIS WITHOUT CONTRAST 06/18/2023 4:15 PM CLINICAL HISTORY: Altered bowel habits. TECHNIQUE: CT scan of the abdomen and pelvis was performed without IV contrast. Multiplanar reformats were obtained. Dose reduction techniques were used. CONTRAST: None. COMPARISON: Abdominal radiograph 06/15/2019. FINDINGS: LOWER CHEST: Unremarkable. HEPATOBILIARY: No liver lesion. Cholelithiasis. PANCREAS: No significant mass, duct dilatation, or inflammatory change. SPLEEN: Unremarkable. ADRENAL GLANDS: No significant nodules. KIDNEYS: Nonobstructing left lower pole renal calculi. Bilateral renal cysts, one of which in the right upper pole has peripheral calcifications; no follow-up necessary. Right lower pole hyperdense structure is most likely a proteinaceous/hemorrhagic cyst. BOWEL: No obstruction or inflammatory change. Small amount of stool within the colon. VASCULATURE: Mild to moderate atherosclerosis. LYMPH NODE AND PERITONEUM: No enlarged lymph node. No free fluid. MUSCULOSKELETAL: Lumbar fusion hardware. Degenerative changes of the lumbar spine. No aggressive osseous lesion. OTHER: None. IMPRESSION: 1. No convincing acute process within the abdomen or pelvis. Small amount of stool throughout the colon. 2. Cholelithiasis. Nonobstructing left lower pole renal calculi. 3. Probable right renal hemorrhagic/proteinaceous cyst. Consider confirmation with renal ultrasound. CHIOMA PALMA MD René Doss MD IMG CT ORDERABLES documented in this encounter Visit Diagnoses Diagnosis Altered bowel habits Other symptoms involving digestive system documented in this encounter Care Teams Health Careers Instructor Relationship Specialty [place] [address] [place] [address] PCP - General 04/30/17 Leanne Shrestha PA-C [address] [address] Physician Pure Pak Machine Operator Urology 07/27/21 documented as of this encounter
== END 2023-07-10 14:44 | disposition home or self-care (01) ==
PROVIDERS: PCP Family Medicine; Visit Provider Family Medicine
DX: R10.9 Unspecified abdominal pain (principal)
CPT/HCPCS: A0425; A0427